=== PATIENT | female | born 1965 | race African-American/Black ===

== ENCOUNTER 2016-07-08 12:55 | Observation (INO) ==
[2016-07-08 13:43] LABS: MANUAL DIFF NEEDED? NO
[2016-07-08 13:46] LABS: BASO% 0.2 % (0.0-0.8); EOS# 0.23 X1000 (0.0-0.7); EOS% 2.8 % (0.0-10.0); HEMATOCRIT 43.4 % (37.0-47.0); HEMOGLOBIN 14.7 g/dL (12.0-16.0); LYMPH# 2.37 X1000 (1.2-3.4); LYMPH% 28.9 % (20.5-51.1); MCH 28.8 PG (27-31); MCHC 33.9 g/dL (33-37); MCV 84.9 FL (81-99); MONO# 0.43 X1000 (0.11-0.59); MONO% 5.2 % (1.7-9.3); NEUT% 62.9 % (42.2-75.2); PLT 271 X1000 (130-400); RBC 5.11 XMIL (4.2-5.4)
[2016-07-08 14:00] LABS: PROTIME 10.5 Seconds (9.2-11.7); PTT 27.3 Seconds (22.0-36.0)
[2016-07-08 14:07] LABS: AGAP 16; ALKALINE PHOSPHATASE 70 U/L (32-104); BUN 9 mg/dL (8-22); CALCIUM 9.7 mg/dL (8.8-10.2); CHLORIDE 100 mmol/L (98-107); CK PROFILE 140 U/L (24-173); COSMO 285; GOT 23 U/L (10-30); GPT 25 U/L (10-36); POTASSIUM 3.9 mmol/L (3.5-5.1); SODIUM 140 mmol/L (136-145); TCO2 24 mmol/L (25-35); TOTAL BILIRUBIN 0.43 mg/dL (0.20-1.00); TOTAL PROTEIN 7.5 g/dL (6.3-8.3)
[2016-07-08] MEDS ORDERED: ASPIRIN PO ONE (14:18)
[2016-07-08] MEDS ORDERED: NITROGLYCERIN TOP ONE (14:19)
--- NOTE | 2016-07-08 14:24 | EKG Report ---
Test Performed on : 07/08/2016 1:15:43 PM Test Reason : cp Blood Pressure : / mmHG Vent. Rate : 089 BPM Atrial Rate : 089 BPM P-R Int : 146 ms QRS Dur : 084 ms QT Int : 410 ms P-R-T Axes : 057 007 044 degrees QTc Int : 498 ms Normal sinus rhythm. Possible Left atrial enlargement Septal infarct , age undetermined Abnormal ECG No previous ECGs available Unconfirmed Result
--- NOTE | 2016-07-08 14:45 | Diag Imaging Result Document ---
PROCEDURE NAME: CHEST-2 VIEWS - 07/08/2016 FRONTAL AND LATERAL CHEST, TWO VIEWS: COMPARISON: 02/25/2016. FINDINGS: The lungs are well expanded. The heart is not enlarged. The vessels are not distended. No pneumonia. No pleural effusions. There is a granuloma in the right base. Prominent degenerative bone spurring in the mid and lower thoracic spine. No free air beneath the diaphragm. IMPRESSION: No acute abnormality.
--- NOTE | 2016-07-08 17:55 | PROVIDER DOCUMENTATION ---
This chart was entered by Charbel Johnson Scribe, acting as scribe for Clifton Raya MD. HPI-Chest Pain - General Chief Complaint: Chest Pain Stated Complaint: generalized pain Time Seen by Provider: 07/08/16 13:55 Source: patient Allergies/Adverse Reactions: Patient Allergies Allergy/AdvReac Type Severity Reaction Status Date / Time No Known Allergies Allergy Verified 07/08/16 14:37 Home Medications: Home Medication List Medication Instructions Recorded Confirmed Last Taken Type Hydrochlorothiazide 25 mg PO DAILY 09/11/13 07/08/16 07/07/16 08:00 History Buspirone [Buspar] 7.5 mg PO BID #14 tablet 07/06/15 07/08/16 07/07/16 08:00 Rx Metformin [Glucophage] 1,000 mg PO DAILY 07/06/15 07/08/16 07/07/16 08:00 History Amlodipine [Norvasc] 5 mg PO DAILY 07/08/16 07/08/16 07/07/16 08:00 History - History of Present Illness-CP Nature of Presenting Problem: PT C/O C/P THAT RADIATES INTO HER ABD,NECK AND JAW X3 DAYS. Location: reports: central Chest Pain Radiation: reports: jaw, neck, epigastric Quality of Pain: reports: aching, burning Severity in ED: mild Onset/Duration: 3 days ago Timing: still present Context/Activities at Onset: reports: none Modifying Factors: improves with: nothing Associated Symptoms: reports: abdominal pain, heartburn. denies: diaphoresis, shortness of breath, vomiting Nitro Today/Relief: no nitro taken today Aspirin Treatment Today: no aspirin today Prior Chest Pain/Cardiac Workup: reports: no prior chest pain, no prior cardiac workup Similar Symptoms Previously?: No Recently Seen Here or By Another Healthcare Provider: No Review of Systems - Adult - REVIEW OF SYSTEMS - ADULT Constitutional: denies: chills, fever, fatique Eyes: denies: discharge, blurred vision, double vision Ears, Nose, Mouth & Throat: denies: ear pain, loose teeth, throat swelling Cardiovascular: reports: chest pain. denies: irregular heart rate, palpitations Respiratory: denies: cough, shortness of breath, wheezing Gastrointestinal: reports: abdominal pain. denies: diarrhea, nausea, vomiting Genitourinary: denies: dysuria, flank pain, hematuria Musculoskeletal: reports: neck pain. denies: back pain, muscle aches Integumentary: denies: hives, itching, rash Neurological: denies: dizziness/vertigo, headache/migraines, syncope Psychiatric: denies: anxiety, emotional problems, panic attacks All Other Systems: Reviewed and Negative Past History - Adult - PAST MEDICAL HISTORY-ADULT Review of Records: reports: Nursing Assessment Review, Medications Reviewed Major Childhood Illnesses: reports: denies history Cardiovascular: reports: HTN Respiratory: reports: denies history Gastrointestinal: reports: denies history Obstetrical/Gynecological: reports: denies history Genitourinary: reports: denies history Musculoskeletal: reports: chronic pain Neurological: reports: denies history Psychiatric: reports: depression Endocrine/Immune: reports: denies history, Diabetes Other Conditions: reports: denies history - PRIOR SURGERIES/PROCEDURES Surgical/Procedure History: reports: reviewed, not pertinent - PRIOR HOSPITALIZATIONS Prior Hospitalizations: reports: for other non-related - IMMUNIZATION STATUS Childhood Immunizations: See Nurse Assessment Flu Vaccine: See Nurse Assessment - FAMILY HISTORY Family History: reviewed, not pertinent - SOCIAL HISTORY Smoking: less than 1 pack/day Provider spent 3-5 mins advising pt. on dangers of tobacco.: Discussed manners to quit use, and f/u contacts for add'l counseling. Substance Use: none/never Alcohol Use Frequency: never Living Situation: alone Physical Exam-General - PHYSICAL EXAM-ADULT Initial Vital Signs Reviewed: Yes - CONSTITUTIONAL General Appearance: appears well, alert, no apparent distress - EYES Eyes: PERRL/EOMI, pink conjunctivae, anisocoria - HEAD, EARS, NOSE, MOUTH & THROAT HENMT: normocephalic/atraumatic, moist mucous membranes, normal ENT inspection, TMs normal, pharynx normal - NECK Neck: non-tender, full range of motion, supple, normal inspection - RESPIRATORY Respiratory: chest non-tender, lungs clear, normal breath sounds, no pleuratic chest pain, no respiratory distress, no accessory muscle use - CARDIOVASCULAR Cardiovascular: normal peripheral pulses, regular rate, rhythm, no edema, no gallop, no JVD, no murmur - GASTROINTESTINAL (ABDOMEN) Abdominal Exam: normal bowel sounds, non tender, soft, no organomegaly, no pulsatile mass - LYMPHATIC Lymphatic: no adenopathy - MUSCULOSKELETAL Back Exam: normal inspection, no CVA tenderness, no vertebral tenderness Extremity: normal range of motion, non-tender, normal gait, normal inspection, no pedal edema, no calf tenderness, normal capillary refill, pelvis stable - SKIN Integumentary: normal color, normal turgor, warm/dry - PSYCHIATRIC Psych/Mental Status: normal mood/affect, normal thought content, normal thought process, oriented x 3 Progress - PLAN OF CARE/RESULTS Progress/Plan/Lab Results: Vital Signs - 8 hr 07/08/16 13:02 Temperature 98.1 F Pulse Rate 99 H Respiratory Rate 18 Blood Pressure 153/89 O2 Sat by Pulse Oximetry 97 Laboratory Results - last 24 hr 07/08/16 07/08/16 07/08/16 13:30 13:30 13:30 WBC 8.20 RBC 5.11 Hgb 14.7 Hct 43.4 MCV 84.9 MCH 28.8 MCHC 33.9 RDW Std Deviation 15.0 H Plt Count 271 MPV 11.0 H Immature Gran % (Auto) 0.0 Neut % (Auto) 62.9 Lymph % (Auto) 28.9 [place] % (Auto) 5.2 Eos % (Auto) 2.8 Baso % (Auto) 0.2 Immature Gran # (Auto) 0.00 Neut # (Auto) 5.15 Lymph # (Auto) 2.37 [place] # (Auto) 0.43 Eos # (Auto) 0.23 Baso # (Auto) 0.02 PT INR PTT (Actin FS) D-Dimer 0.59 H Sodium 140 Potassium 3.9 Chloride 100 Carbon Dioxide 24 L Anion Gap 16 BUN 9 Creatinine 0.9 Estimated GFR/1.73 m2 > 60 BUN/Creatinine Ratio 10 Glucose 227 H Calculated Osmolality 285 Calcium 9.7 Total Bilirubin 0.43 AST 23 ALT 25 Alkaline Phosphatase 70 Creatine Kinase 140 Troponin T C-React Prot High Sens Total Protein 7.5 Albumin 4.0 Globulin 3.5 Albumin/Globulin Ratio 1.1 07/08/16 07/08/16 07/08/16 13:30 13:30 13:30 WBC RBC Hgb Hct MCV MCH MCHC RDW Std Deviation Plt Count MPV Immature Gran % (Auto) Neut % (Auto) Lymph % (Auto) [place] % (Auto) Eos % (Auto) Baso % (Auto) Immature Gran # (Auto) Neut # (Auto) Lymph # (Auto) [place] # (Auto) Eos # (Auto) Baso # (Auto) PT 10.5 INR 1.00 PTT (Actin FS) 27.3 D-Dimer Sodium Potassium Chloride Carbon Dioxide Anion Gap BUN Creatinine Estimated GFR/1.73 m2 BUN/Creatinine Ratio Glucose Calculated Osmolality Calcium Total Bilirubin AST ALT Alkaline Phosphatase Creatine Kinase Troponin T < 0.010 C-React Prot High Sens 1.160 Total Protein Albumin Globulin Albumin/Globulin Ratio Orders Category Date Time Status Diabetic Diet Diet 07/08/16 17:24 Active CHEST-2 VIEWS [RAD] Stat Exams 07/08/16 13:35 Completed CTA [ANGIOGRAM/PULMONARY ARTERIES] [CT] Stat Exams 07/08/16 17:22 Ordered CBC WITH ELECTRONIC DIFF [HEME] Stat Lab 07/08/16 13:30 Completed CK PROFILE [SP CHEM] Stat Lab 07/08/16 13:30 Completed COMPREHENSIVE METABOLIC PANEL [CHEM] Stat Lab 07/08/16 13:30 Completed CRP HIGH SENSITIVITY Stat Lab 07/08/16 13:30 Completed D-DIMER [CHEM] Stat Lab 07/08/16 13:30 Completed TEST-SERUM [PREG] Stat Lab 07/08/16 17:41 Ordered PROTIME WITH INR [COAG] Stat Lab 07/08/16 13:30 Completed PTT [COAG] Stat Lab 07/08/16 13:30 Completed TROPONIN T Stat Lab 07/08/16 13:30 Completed Aspirin Med 07/08/16 14:18 Discontinued 324 mg PO NOW ONE Nitroglycerin Med 07/08/16 14:19 Discontinued 1 inch TOP NOW ONE EKG [EKG] Stat Ther 07/08/16 13:08 Draft Venous U/S Left Leg Routine Ther 07/08/16 17:36 Ordered Transfer/Admit Order [TRANSFER] Routine Transfer 07/08/16 16:50 Ordered Result Diagrams: 07/08/16 13:30 07/08/16 13:30 Departure - Departure Time of Disposition Decision: 17:00 DIAGNOSIS: Chest pain Qualifiers: Chest pain type: chest pain due to myocardial ischemia Ischemic chest pain type : unstable angina pectoris Qualified Code(s): I20.0 - Unstable angina Disposition: ADMITTED INPATIENT 09 Certified Medical Emergency: Emergent Condition: Good Referrals and Follow-Ups: None,PCP [Primary Care Provider] - - Critical Care Note This patient required my direct & personal management of CC.: No This chart was documented by the indicated scribe, (Charbel Johnson Scribe) and accurately reflects the services I performed and decisions made by me, Clifton Raya MD, as attested by the provider's signature.
[2016-07-08] MEDS ORDERED: DUONEB (A & A) INH PRN (18:38)
[2016-07-08] MEDS ORDERED: TYLENOL PO PRN (18:38)
[2016-07-08] MEDS ORDERED: ZOFRAN IV PRN (18:38)
--- NOTE | 2016-07-08 18:44 | HISTORY AND PHYSICAL ---
CHIEF COMPLAINT: Chest pain. HISTORY OF PRESENT ILLNESS: Mrs. Perez is a 51-year-old female with a history of diabetes mellitus, hypertension, asthma, gastroesophageal reflux disease who presents with 1 month of chest pain which has been increasingly worse over the past week. Mrs. Perez reports that over the last month she is having random episodes of midsternal to left-sided chest pain that radiates up her neck into her jaw. This is not associated with exertion. This happens multiple times a day which she reports a dull pain that goes up into her neck lasting for anywhere from 5-10 minutes. She does have some shortness of breath with the pain but she also has chronic shortness of breath. She denies any nausea or vomiting with the pain and she denies any diaphoresis with the pain. She states that she has pedal edema occasionally and PND but no orthopnea, she also reports left leg pain and swelling greater than the right. She also reports abdominal pain, which is chronic and has been going on for some time. This is associated with constipation. She had episodes today and she came to the ER for evaluation. In the ER, she had labs and diagnostics done. Everything was largely unremarkable with the exception of a mildly elevated D- dimer and a glucose of 227. EKG shows normal sinus rhythm without acute ST or T abnormalities. She is now going to be admitted for observation status for chest pain. PAST MEDICAL HISTORY: 1. Hypertension. 2. Peptic ulcer disease. 3. Gastroesophageal reflux disease. 4. Diabetes mellitus. 5. Hyperlipidemia. 6. Asthma. SURGICAL HISTORY: Bilateral tubal ligation, and breast biopsy on the left. SOCIAL HISTORY: Patient smokes around a quarter pack a day of cigarettes. She reports occasional alcohol on the weekends. She denies drug use. 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 She is and has 5 children. FAMILY HISTORY: Both parents at 50 years old with a myocardial infarction. REVIEW OF SYSTEMS: Fourteen-point review of systems obtained and found to be negative with the exception of the HPI. ALLERGIES: No known drug allergies. HOME MEDICATIONS: Currently being compiled. PHYSICAL EXAMINATION: VITAL SIGNS: Blood pressure 153/89, heart rate 99, respiratory rate 18, O2 saturations 97% on room air. Temperature is 98.1 degrees. GENERAL: This is an obese female, lying in the hospital bed. No acute distress. NEUROLOGIC: She is awake, alert, oriented. She follows commands without focal deficits. HEENT: Head atraumatic and normocephalic. Her pupils are equal, round, reactive to light. Oral mucosa is moist. Trachea is midline. No JVD or carotid bruits. CHEST: Clear to auscultation bilaterally. She has significant chest wall tenderness to palpation in the midsternal area. LUNGS: Clear to auscultation bilaterally. CV: Regular rate and rhythm. S1, S2 is noted. No murmurs. GI: Soft, nondistended, some slight left upper quadrant tenderness to palpation. Bowel sounds are active. EXTREMITIES: No edema, clubbing or cyanosis. Pulses are palpable bilaterally. DIAGNOSTIC DATA: Chest x-ray is negative for acute process. EKG shows sinus rhythm without acute ST-T abnormalities. WBC 8.2, hemoglobin 14.7, hematocrit 43.4, platelet count 271,000. PT 10.5, INR 1, D-dimer 0.59. Sodium 140, potassium 3.9, chloride 100, CO2 24, anion gap 16. BUN 9, creatinine 0.9, glucose 227. LFTs within normal limits. Troponin is negative. CRP high sensitivity is 1.16. Albumin 4. ASSESSMENT/PLAN: 1. Chest pain: Atypical in nature. We are going to check an echocardiogram, rule out myocardial infarction with cardiac enzymes and risk stratify with a stress test in the morning. We will keep her NPO, without caffeine after midnight. We will continue to trend enzymes and add daily aspirin. If any of her enzymes become positive or her stress test is positive we will consult with Cardiology. We are also going to check a CTA of the chest given her elevated D- dimer. 2. Elevated D-dimer: Computed tomography angiography of the chest has been ordered. We will also order a left lower extremity venous ultrasound as she is complaining of left lower extremity pain and swelling about the left knee. 3. Diabetes mellitus: Blood sugar 227, will check hemoglobin A1c. Add pattern sugars and sliding scale insulin. 4. Hypertension: We will continue home medications once they have been compiled. We will add IV medications as needed. 5. Asthma: We will check a CTA of the chest and add p.r.n. nebs. She is not wheezing at this time. 6. Acid reflux/peptic ulcer disease. We will add PPI. 7. DVT prophylaxis with Lovenox. Further recommendations to follow. Dictated by FER Booth for Jabier Basilio MD cc: FER Booth MD [facility]
[2016-07-08 19:08] LABS: HEMOGLOBIN A1C 12.4 % (4.8-6.0)
[2016-07-08] MEDS: BUSPAR PO SCH (21:09)
[2016-07-08] MEDS: NICODERM PATCH TD SCH (21:10)
[2016-07-08] MEDS: MORPHINE IV PRN (21:10)
[2016-07-08] MEDS: HUMALOG SUBQ SCH (21:15)
--- NOTE | 2016-07-08 22:11 | Diag Imaging Result Document ---
PROCEDURE NAME: ANGIOGRAM/PULMONARY ARTERIES - 07/08/2016 STUDY: CT chest with intravenous contrast. PROTOCOL: Dose reduction protocol. Suboptimal pulmonary opacification despite two separate attempts. No large central pulmonary emboli. No thoracic aortic aneurysm or dissection. No pleural effusions. The heart is borderline mildly prominent. No enlarged mediastinal or hilar lymph nodes. There is a calcified granuloma in the right lower lobe. There is a small infiltrate in the medial portion of the right lower lobe inferiorly. A 3 mm nonspecific nodule laterally in the right lung on image 65. An 8 mm noncalcified nodule in the mid right lung on image 79. Just inferior to this is a 3 mm nodule as well as a calcified granuloma. Tiny granuloma in the left lower lobe. A 5 mm nodule laterally in the right lung on image 102. No bronchiectasis. Limited images through the upper abdomen reveal hepatomegaly with fatty infiltration. IMPRESSION: 1. Suboptimal pulmonary opacification. No large central pulmonary emboli identified. 2. Fibrosis versus small infiltrate medially in the right lower lobe. 3. There is evidence of a prior granulomatous infection with multiple scattered calcified granuloma. 4. There are also several noncalcified nodules scattered in the lungs. 5. Hepatomegaly with fatty infiltration. A preliminary report was given at 8:02 p.m.
[2016-07-08] MEDS: DUONEB (A & A) INH SCH ×2 (23:10)
[2016-07-09] MEDS: DUONEB (A & A) INH SCH ×6 (04:12→22:45)
[2016-07-09] MEDS: HUMALOG SUBQ SCH ×4 (06:17→21:15)
[2016-07-09] MEDS: MORPHINE IV PRN ×2 (06:21→21:23)
[2016-07-09 08:47] LABS: HEMATOCRIT 41.8 % (37.0-47.0); HEMOGLOBIN 13.6 g/dL (12.0-16.0); MCH 28.1 PG (27-31); MCHC 32.5 g/dL (33-37); MCV 86.4 FL (81-99); RBC 4.84 XMIL (4.2-5.4)
[2016-07-09 09:08] LABS: AGAP 14; BUN 14 mg/dL (8-22); CALCIUM 8.5 mg/dL (8.8-10.2); CHLORIDE 101 mmol/L (98-107); COSMO 282; POTASSIUM 3.6 mmol/L (3.5-5.1); SODIUM 139 mmol/L (136-145); TCO2 24 mmol/L (25-35)
--- NOTE | 2016-07-09 13:16 | ECHO REPORT ---
ORDER DATE: 07/08/2016 MEASUREMENTS: Left ventricular end-diastolic diameter 4.8, end-systolic diameter 3.5, septal thickness 1.2, posterior wall thickness 1.2, left atrium 4.5, aortic root 2.8. SUMMARY: 1. Adequate quality study. 2. Aortic, mitral, tricuspid, and pulmonic valves are without structural abnormality, with trace tricuspid regurgitation and mild pulmonic regurgitation. Aortic root is normal size. 3. Normal left ventricular chamber size with mild concentric left ventricular hypertrophy is demonstrated. Estimated left ventricular ejection fraction is approximately 55%. No regional wall motion abnormalities are evident. Doppler suggests grade 1 left ventricular diastolic dysfunction. 4. Left atrium, right atrium, and right ventricle are normal in size. No regional wall motion abnormalities are evident. Doppler suggests grade 1 left ventricular diastolic dysfunction. Left atrium is mildly enlarged. Right atrium and right ventricle are normal in size with normal right ventricular systolic function. 5. No pericardial effusion. 6. Appearance of inferior vena cava suggests normal central venous pressure. CONCLUSIONS: 1. No significant valvular abnormality. 2. Mild concentric left ventricular hypertrophy with an estimated left ventricular ejection fraction of 55%. 3. Grade 1 left ventricular diastolic dysfunction. 4. Mild left atrial enlargement. cc: MD Tr Lorenzana CRNP
--- NOTE | 2016-07-09 13:36 | PROGRESS NOTE ---
DATE: 07/09/2016 Today Ms. Perez referred to be doing a lot better. She continues to have this epigastric chest pain which according to her, radiates to her neck. OBJECTIVE: Vital signs: Blood pressure is 123/83, pulse of 71, respirations 18 , temperature is 98.1 degrees. General: Ms. Perez is a 51-year-old female. She is in bed, not seemingly distressed. HEENT: Mucosa is pink and moist. Anicteric. Acyanotic. Neck: Supple. Chest: Good air entry bilateral. No crepitations. No rhonchi. Cardiovascular : Regular rate and rhythm. Abdomen: Soft, is exclusively tender in the epigastrium and the right upper quadrant. Bowel sounds are present. There is no hepatosplenomegaly. Extremities: No pedal edema. 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 There is no focal neurological deficit. LABORATORY DATA: The CBC is reviewed, is completely negative. Chemistry is reviewed and is completely negative. Patient's glucose is 178, and A1c is 12.4 consistent with uncontrolled diabetes mellitus. CURRENT MEDICATIONS INCLUDE: 1. Tylenol p.r.n. 2. Albuterol. 3. Norvasc 5 mg daily. 4. Aspirin 325 p.o. daily. 5. BuSpar. 6. Lovenox. 7. Morphine. ASSESSMENT: 1. Atypical chest pain. The patient does have significant risk factor and a C- reactive sensitive protein is high. I think it is reasonable to go ahead and do a stress test. 2. Epigastric pain and right upper quadrant pain. I think patient genuinely does have GI related disease maybe an underlying ulcer versus GERD or esophagitis. We will however rule out the cardiac aspect 1st and then hopefully get our GI colleagues to see her and possibly scope her while she is here in hospital. For now will continue with the PPI and add Carafate. 3. Costochondritis. We will treat this symptomatically. 4. Active tobacco use. Patient has been counseled. 5. Diabetes mellitus with presenting A1c 12.4 consistent with severely uncontrolled. While patient is in the hospital we will control this with insulin. She was only on metformin at home. I think in the short term she will be needing insulin to get a better glycemic control. 6. Hypertension. Noted. 7. Dyslipidemia. We will start the patient on atorvastatin 40 mg daily. So in general, I think Ms. Perez is relatively stable. She had an echo and she will be pending a myocardial perfusion scan test. Will also do an ultrasound of the right upper quadrant to make sure there is not any gallbladder related disease and hopefully follow up with the results. cc: Jabier Basilio MD MTDD
[2016-07-09] MEDS ORDERED: LEXISCAN ONE (14:08)
[2016-07-09] MEDS: BUSPAR PO SCH ×2 (16:07→21:15)
[2016-07-09] MEDS: ASPIRIN PO SCH ×2 (16:41→17:08)
--- NOTE | 2016-07-09 17:00 | Diag Imaging Result Document ---
PROCEDURE NAME: US ABDOMEN-COMPLETE - 07/09/2016 ABDOMINAL ULTRASOUND: FINDINGS: Normal pancreatic head. The majority of the pancreas is obscured by overlying bowel gas. Normal inferior vena cava and aorta. There is fatty infiltration of the liver. No focal hepatic abnormality. Normal gallbladder. No stones. The gallbladder wall is not thickened. The common bile duct is not distended. Normal right kidney. No hydronephrosis. The common bile duct measures 3 mm. No ascites. Normal spleen. Normal left kidney. No hydronephrosis. IMPRESSION: Fatty infiltration of the liver, otherwise normal abdominal ultrasound.
[2016-07-09] MEDS: LOVENOX SUBQ SCH (17:06)
[2016-07-09] MEDS: LIPITOR PO SCH (17:07)
[2016-07-09] MEDS: CARAFATE PO SCH ×2 (17:07→21:15)
[2016-07-09] MEDS: NORVASC PO SCH (17:08)
[2016-07-09] MEDS: NICODERM PATCH TD SCH (17:09)
[2016-07-10] MEDS: DUONEB (A & A) INH SCH ×3 (03:56→11:20)
[2016-07-10] MEDS: HUMALOG SUBQ SCH ×2 (06:23→10:39)
[2016-07-10] MEDS ORDERED: PRILOSEC PO SCH (07:00)
[2016-07-10 07:12] LABS: HEMATOCRIT 40.1 % (37.0-47.0); HEMOGLOBIN 12.9 g/dL (12.0-16.0); MCH 28.3 PG (27-31); MCHC 32.2 g/dL (33-37); MCV 87.9 FL (81-99); MPV 11.2 FL (7.4-10.4); RBC 4.56 XMIL (4.2-5.4)
[2016-07-10 07:37] LABS: AGAP 11; BUN 13 mg/dL (8-22); CHLORIDE 103 mmol/L (98-107); COSMO 288; POTASSIUM 4.2 mmol/L (3.5-5.1); SODIUM 142 mmol/L (136-145); TCO2 28 mmol/L (25-35)
[2016-07-10] MEDS: NICODERM PATCH TD SCH (08:26)
[2016-07-10] MEDS: CARAFATE PO SCH ×2 (08:27→13:30)
[2016-07-10] MEDS: BUSPAR PO SCH (08:27)
[2016-07-10] MEDS: LIPITOR PO SCH (08:28)
[2016-07-10] MEDS: ASPIRIN PO SCH (08:28)
[2016-07-10] MEDS: LOVENOX SUBQ SCH (08:29)
[2016-07-10] MEDS: NORVASC PO SCH (08:29)
[2016-07-10] MEDS: MORPHINE IV PRN (08:53)
--- NOTE | 2016-07-10 12:37 | Diag Imaging Result Document ---
PROCEDURE NAME: MYOCARDIAL PERF SCAN, STR/REST - 07/09/2016 INDICATION: Chest pain. PROCEDURES PERFORMED: 1. Lexiscan stress. 2. One day stress rest myocardial perfusion imaging. PROCEDURE IN DETAIL: Ms. Perez was brought to the nuclear laboratory and had a resting study with injection of 14.5 mCi of technetium-99m sestamibi to usual imaging protocol utilized. Subsequently she had a Lexiscan stress. At peak stress, was injected with 44.8 mCi of technetium- 99m sestamibi with usual imaging protocol utilized. FINDINGS: LEXISCAN STRESS RESULTS: 1. Baseline EKG shows sinus rhythm. 2. No clear evidence of ischemic related EKG changes or significant arrhythmias occurred during the course of the study. PERFUSION IMAGING RESULTS: 1. No evidence of abnormal extracardiac uptake. 2. TID ratio is normal at 1.04. 3. Perfusion imaging demonstrates normal homogenous uptake of radiotracer throughout the myocardial segments. There is no evidence of stress-related defects. 4. Normal ejection fraction of 61%. There is an end-diastolic volume of 136. End-systolic volume of 53. Normal wall motion. cc: MD Jabier Agudelo MD
[2016-07-10 14:57] VITALS: BP 122/52
--- NOTE | 2016-07-10 19:50 | DISCHARGE SUMMARY ---
ADMISSION DATE: 07/08/2016 DISCHARGE DATE: 07/10/2016 CONSULTATIONS DURING THIS ADMISSION: None. INVASIVE PROCEDURES DONE: None. IMAGING STUDIES OF SIGNIFICANCE: 1. CTA of the lungs was done on presentation which was completely negative of PE. There is some hepatomegaly with fatty infiltration. 2. Ultrasound of the abdomen was done. There was fatty infiltration of the liver. Otherwise gallbladder was fine. 3. Myocardial perfusion scan of the heart was completely negative. DISPOSITION: Home. ADMISSION DIAGNOSES: 1. Chest pain. 2. Elevated D-dimer. 3. Diabetes mellitus. 4. Hypertension. DISCHARGE DIAGNOSES: 1. Atypical chest pain with normal stress test. 2. Epigastric pain suspicious for esophagitis/peptic ulcer disease. 3. Costochondritis. 4. Active tobacco use. 5. Diabetes mellitus with presenting A1c of 12.4. 6. Hypertension. 7. Dyslipidemia. DISCHARGE MEDICATIONS: 1. Hydrochlorothiazide 25 mg daily. 2. Metformin 1000 mg p.o. daily. 3. BuSpar. 4. Amlodipine 5 mg daily. 5. Atorvastatin 40 mg daily. 6. Omeprazole 40 mg daily. 7. Carafate 1 g p.o. q.4. 8. Insulin 70/30. Patient refers to be taking 30 units at home. We do not have any documentation so we do not want to alter this. We have advised her to follow up with her primary care doctor to make changes since her A1c is ridiculously high. FOLLOWUP: 1. Patient's PCP, Dr. Whitmore. 2. GI doctor. Referred to see Dr. Landis. PRESENTING COMPLAINT: Chest pain. HISTORY OF PRESENTING COMPLAINT: Ms. Perez is a 51-year-old, female with multiple comorbidities who presented to the emergency department because of chest pain radiating to the left arm and the jaw. Because patient has significant risk factors and also a family history of both parents dying at the age of 50 with heart attacks, it was deemed necessary to put her in for risk stratification. HOSPITAL COURSE: During the hospital course patient did continue to have intermittent chest pain, however, troponins and EKGs were all normal. A stress test was done which came back completely normal. The patient did improve somewhat with PPI and Carafate. I think her pain is all related to GI pathology. The patient does have a history of peptic ulcer disease and GERD, and I do not think she has been very compliant with her medications and is having a flare from those diseases. The patient is clinically stable from a medical standpoint. We thought she was okay to be discharged. She has been given recommendations to follow up with Dr. Landis for possible EGD to follow up on her epigastric pain. The patient has also been advised to lose some weight and stay away from alcohol because she has fatty liver disease. We spent an extensive amount of time, over 15 minutes, also talking about smoking cessation. Today she refers to be doing a lot better. Vitals have been reviewed. Blood pressure is 122/52, pulse of 80, respirations 18, temperature is 98.0 degrees. Physical examination is unremarkable except for mild epigastric discomfort. Patient is going to be discharged in very stable condition. She will follow up with her PCP, Dr. Whitmore, and also with Dr. Landis. All discharge instructions have been discussed and as I said, we stressed very importantly the need for smoking and alcohol cessation. TIME SPENT FOR DISCHARGE: 37 minutes. cc: Jabier Basilio MD
--- NOTE | 2016-07-14 07:51 | Extremity Venous Study ---
PROCEDURE NAME: Venous U/S Left Leg - 07/08/2016 REFERRING PHYSICIAN: Dr. Raya. READING PHYSICIAN: Aleksander Tamayo MD. AGENCY OWNER: [employer]. INDICATION: Left leg pain and swelling. FINDINGS: The deep and superficial veins of the left lower extremity were imaged throughout their course. All are compressible with forward flow. No thrombus is appreciated. Reflux is noted in the left greater saphenous vein for 5.3 seconds, as well as in the mid superficial femoral vein for 3.6 seconds. INTERPRETATION: No evidence of deep or superficial venous thrombosis in the left lower extremity. Venous reflux is noted over 0.5 seconds in the greater saphenous vein and superficial femoral vein. cc: MD Tr Min CRNP
== END 2016-07-10 14:55 | disposition home or self-care (01) ==
LOC: ED 12:55 → 3N 18:16 → INTOOBSV 18:16 → 3N 07-09 03:32
PROVIDERS: ATTEND Internal Medicine

== ENCOUNTER 2018-03-31 20:40 | Inpatient (IN) ==
[2018-03-31] MEDS ORDERED: SOLU-MEDROL IV ONE (23:37)
[2018-03-31] MEDS ORDERED: DUONEB (A & A) ONE (23:51)
[2018-04-01] MEDS ORDERED: DUONEB (A & A) INH ONE ×4 (00:42→11:45)
[2018-04-01 01:12] LABS: BASO# 0.02 X1000 (0.0-0.2); BASO% 0.2 % (0.0-0.8); EOS# 0.13 X1000 (0.0-0.7); EOS% 1.4 % (0.0-10.0); HEMATOCRIT 34.1 % (37.0-47.0); HEMOGLOBIN 10.7 g/dL (12.0-16.0); IMM GRAN# 0.01 X1000 (0.0-0.04); IMM GRAN% 0.1 % (0.0-0.5); LYMPH# 3.05 X1000 (1.2-3.4); LYMPH% 33.7 % (20.5-51.1); MCH 26.7 PG (27-31); MCHC 31.4 g/dL (33-37); MONO# 0.53 X1000 (0.11-0.59); MONO% 5.9 % (1.7-9.3); MPV 11.2 FL (7.4-10.4); NEUT# 5.31 X1000 (1.4-6.5); NEUT% 58.7 % (42.2-75.2); PLT 234 X1000 (130-400); RBC 4.01 XMIL (4.2-5.4); RDW 16.3 % (11.5-14.5); WBC 9.05 X1000 (4.8-10.8)
[2018-04-01 02:09] LABS: AGAP 10; BUN 9 mg/dL (8-22); CALCIUM 8.9 mg/dL (8.8-10.2); CHLORIDE 103 mmol/L (98-107); COSMO 281; CREATININE 0.6 mg/dL (0.5-0.9); ESTIMATED GFR > 60; GLUCOSE 181 mg/dL (70-104); POTASSIUM 3.6 mmol/L (3.5-5.1); SODIUM 139 mmol/L (136-145); TCO2 25 mmol/L (25-35)
--- NOTE | 2018-04-01 04:48 | PROVIDER DOCUMENTATION ---
This chart was entered by Ifrah Garcia Scribe, acting as scribe for Clifton Raya MD. HPI-Respiratory General - General Chief Complaint: Return/Recheck Stated Complaint: CHEST PAIN,SOB,ASTHMA Time Seen by Provider: 03/31/18 23:34 Source: patient Allergies/Adverse Reactions: Patient Allergies Allergy/AdvReac Type Severity Reaction Status Date / Time No Known Allergies Allergy Verified 03/31/18 22:20 Home Medications: Home Medication List Medication Instructions Recorded Confirmed Last Taken Type Hydrochlorothiazide 25 mg PO DAILY #90 tab 07/25/17 11/17/17 11/16/17 Rx Albuterol 2.5MG/Ipratrop 0.5MG 3 ml INH Q6H PRN PRN #90 neb 11/04/17 11/17/17 Rx [Duoneb] Albuterol Sulfate [Albuterol 8.5 gm IH Q4-6H PRN PRN #2 11/04/17 11/17/17 Rx Sulfate Hfa] hfa.[email or web address].[email or web address] Amlodipine [Norvasc] 10 mg PO DAILY 11/04/17 11/17/17 11/16/17 History Buspirone HCl [Buspar] 5 mg PO DAILY 11/04/17 11/17/17 11/16/17 History Ferrous Sulfate 325 mg PO DAILY #100 tablet 11/04/17 11/17/17 11/16/17 Rx Fluticasone/Salmeterol [Advair 1 each IH BID #1 disk.w.dev 11/04/17 11/17/1712/24 Rx 500-50 Diskus] Metformin HCl 1,000 mg PO BID #180 tablet 11/04/17 11/17/17 11/17/17 Rx Cyclobenzaprine [Flexeril] 10 mg PO TID PRN 3 Days tablet 11/17/17 Unknown Rx Methocarbamol [Robaxin-750] 750 mg PO BID PRN #60 tablet 02/14/18 Unknown Rx Naproxen 500 mg PO BID PRN PRN #60 tablet 02/14/18 Unknown Rx Clonidine [Catapres] 0.1 mg PO BID #60 tab 02/17/18 Unknown Rx Glimepiride [Amaryl] 4 mg PO DAILY #30 tab 02/17/18 Unknown Rx Hydrochlorothiazide 25 mg PO DAILY #30 tab 02/17/18 Unknown Rx Metformin [Glucophage] 500 mg PO BID CC #60 tab 02/17/18 Unknown Rx Albuterol Sulfate Inhaler 2 puff INH Q6H PRN PRN #1 inhaler 03/30/18 Unknown Rx [Ventolin Hfa] Amoxicillin/Pot Clavulanate 875 mg PO Q12HR #10 tab 03/30/18 Unknown Rx [Augmentin] Clonidine [Catapres] 0.1 mg PO DAILY #30 tab 03/30/18 Unknown Rx Hydrochlorothiazide 25 mg PO DAILY #30 tab 03/30/18 Unknown Rx Prednisone 20 mg PO DAILY #5 tab 03/30/18 Unknown Rx - History of Present Illness-Resp Nature of Presenting Problem: 53 yof presents to ED cc of SOB, coughing up blood, runny nose, laringytis, chills, wheezing that has been present for 1-2 weeks. PT was seen at yesterday and given antibiotic and breathing treatment as home meds. PT states stopping smoking 1 week ago. PT has HX of COPD and HTN. Review of Systems - Adult - REVIEW OF SYSTEMS - ADULT Constitutional: reports: chills. denies: fever Eyes: reports: no symptoms reported Ears, Nose, Mouth & Throat: reports: no symptoms reported Cardiovascular: reports: no symptoms reported Respiratory: reports: see HPI, cough, excessive sputum production, hemoptysis, shortness of breath, wheezing Gastrointestinal: reports: no symptoms reported Genitourinary: reports: no symptoms reported Musculoskeletal: reports: no symptoms reported Integumentary: reports: no symptoms reported Neurological: reports: no symptoms reported Psychiatric: reports: no symptoms reported Endocrine: reports: no symptoms reported Hematologic/Lymphatic: reports: no symptoms reported Allergic/Immunologic: reports: no symptoms reported All Other Systems: Reviewed and Negative Past History - Adult - PAST MEDICAL HISTORY-ADULT Review of Records: reports: Nursing Assessment Review, Medications Reviewed Major Childhood Illnesses: reports: denies history Cardiovascular: reports: HTN, hyperlipidemia Respiratory: reports: asthma, tuberculosis (at age 12-treated) Gastrointestinal: reports: GERD, ulcer, other (gallstones) Obstetrical/Gynecological: reports: denies history Genitourinary: reports: denies history Musculoskeletal: reports: chronic pain (DDD), fibromyalgia Neurological: reports: other (foot tingling from diabetes prior to having this pain today) Psychiatric: reports: anxiety, depression Endocrine/Immune: reports: Diabetes Other Conditions: reports: denies history - PRIOR SURGERIES/PROCEDURES Surgical/Procedure History: reports: reviewed, not pertinent, BTL - PRIOR HOSPITALIZATIONS Prior Hospitalizations: reports: for other non-related - IMMUNIZATION STATUS Childhood Immunizations: See Nurse Assessment Flu Vaccine: See Nurse Assessment - FAMILY HISTORY Family History: reviewed, not pertinent - SOCIAL HISTORY Smoking: cigarettes, less than 1 pack/day Physical Exam-General - PHYSICAL EXAM-ADULT Initial Vital Signs Reviewed: Yes - CONSTITUTIONAL General Appearance: alert, moderate distress - EYES Eyes: PERRL/EOMI, pink conjunctivae - HEAD, EARS, NOSE, MOUTH & THROAT HENMT: moist mucous membranes, pharyngeal erythema - NECK Neck: non-tender, full range of motion, supple - RESPIRATORY Respiratory: respiratory distress, crackles, wheezing, retractions. negative: lungs clear - CARDIOVASCULAR Cardiovascular: no edema, tachycardia - GASTROINTESTINAL (ABDOMEN) Abdominal Exam: normal bowel sounds, non tender, soft. 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 as tested, grossly normal, no motor/sensory deficits - PSYCHIATRIC Psych/Mental Status: normal mood/affect, normal thought content, normal thought process, oriented x 3 Progress - PLAN OF CARE/RESULTS Progress/Plan/Lab Results: Vital Signs - 8 hr 03/31/18 20:57 03/31/18 23:55 04/01/18 04:39 Temperature 99 F Pulse Rate 80 80 80 Respiratory Rate 18 20 20 Blood Pressure 178/99 O2 Sat by Pulse Oximetry 98 98 Laboratory Results - last 24 hr 04/01/18 04/01/18 00:45 00:45 WBC 9.05 RBC 4.01 L Hgb 10.7 L Hct 34.1 L MCV 85.0 MCH 26.7 L MCHC 31.4 L RDW Std Deviation 16.3 H Plt Count 234 MPV 11.2 H Immature Gran % (Auto) 0.1 Neut % (Auto) 58.7 Lymph % (Auto) 33.7 [place] % (Auto) 5.9 Eos % (Auto) 1.4 Baso % (Auto) 0.2 Immature Gran # (Auto) 0.01 Neut # (Auto) 5.31 Lymph # (Auto) 3.05 [place] # (Auto) 0.53 Eos # (Auto) 0.13 Baso # (Auto) 0.02 Sodium 139 Potassium 3.6 Chloride 103 Carbon Dioxide 25 Anion Gap 10 BUN 9 Creatinine 0.6 Estimated GFR/1.73 m2 > 60 BUN/Creatinine Ratio 15 Glucose 181 H Calculated Osmolality 281 Calcium 8.9 Orders Category Date Time Status Saline Loc NOW Care 04/01/18 00:[address] THORAX W/CONTRAST [CT] Stat Exams 03/31/18 23:38 Taken BMP [BASIC METABOLIC PANEL] [CHEM] Stat Lab 04/01/18 00:45 Completed CBC WITH ELECTRONIC DIFF [HEME] Stat Lab 04/01/18 00:45 Completed Albuterol 2.5MG/Ipratrop 0.5MG [Duoneb (A & A)] Med 03/31/18 23:51 Discontinued 3 ml .ROUTE .STK-MED ONE Albuterol 2.5MG/Ipratrop 0.5MG [Duoneb (A & A)] Med 04/01/18 04:18 Discontinued 3 ml INH NOW ONE Albuterol 2.5MG/Ipratrop 0.5MG [Duoneb (A & A)] Med 04/01/18 04:21 Discontinued 3 ml INH NOW ONE Albuterol 2.5MG/Ipratrop 0.5MG [Duoneb (A & A)] Med 04/01/18 00:42 Discontinued 6 ml INH NOW ONE Albuterol 2.5MG/Ipratrop 0.5MG [Duoneb (A & A)] Med 04/01/18 11:45 Discontinued 6 ml INH NOW ONE Methylprednisolone Sod Succ [Solu-Medrol] Med 03/31/18 23:37 Discontinued 40 mg IV NOW ONE Aerosol Treatments Routine Oth 03/31/18 23:36 Active Aerosol Treatments Routine Ot 04/01/18 00:43 Active Aerosol Treatments Routine Ot 04/01/18 04:18 Active Aerosol Treatments Routine Ot 04/01/18 04:22 Active Aerosol Treatments Stat Ot 03/31/18 23:36 Active Aerosol Treatments Stat Ot 04/01/18 00:43 Active Aerosol Treatments Stat Oth 04/01/18 04:18 Active Aerosol Treatments Stat Oth 04/01/18 04:22 Active Result Diagrams: 04/01/18 00:45 04/01/18 00:45 - CT/MRI 1 CT Study: Thorax (two non noncalcified pulmonary nodules in right lung) Departure - Departure Date of Disposition Decision: 04/01/18 Time of Disposition Decision: 04:47 DIAGNOSIS: Hemoptysis, Pulmonary nodules/lesions, multiple Disposition: ADMITTED INPATIENT 09 Certified Medical Emergency: Emergent Condition: Stable Referrals and Follow-Ups: None,PCP [Primary Care Provider] - - Critical Care Note This patient required my direct & personal management of CC.: No Attestation - Physician/ HERBERTH Attestation Patient care was provided by Advanced Practice Provider:: No The physician spent face to face time with patient:: Yes Advanced Practice Provider documentation review:: Supervising physician onsite and consulted in the evaluation and care of this patient. The physician did have a face to face encounter with the patient. This chart was documented by the indicated scribe, (Ifrah Gacria Scribrabia) and accurately reflects the services I performed and decisions made by me, Clifton Raya MD, as attested by the provider's signature.
--- NOTE | 2018-04-01 09:41 | Diag Imaging Result Doc PS360 ---
EXAM: CT THORAX W/CONTRAST HISTORY: hemoptosis TECHNIQUE: Images were obtained from the lung apices through bases following IV contrast as per standard protocol. COMPARISON: 01/18/2017. Study from 07/08/2016 is unavailable for comparison. FINDINGS: Preliminary interpretation was given by [facility] teleradiology. The heart and mediastinum are unremarkable other than mild atherosclerotic calcification within the aorta. There is mild pulmonary emphysema. There are stable small nodules within the right middle lobe. Stable right upper lobe 7 mm noncalcified nodule image 44, stable right lower lobe 6 mm nodule image 58, stable 1 cm noncalcified nodule left lung is 37 abutting major fissure. There is a calcified granuloma right lower lobe. Right medial basal fibrosis associated with a large pedunculated osteophyte. No effusion. No pneumothorax. There is central bronchial wall thickening. IMPRESSION: 1.Multiple pulmonary nodules stable since 01/18/2017. Continued surveillance is recommended as per Fleischner's guidelines. 2.Pulmonary emphysema. 3.Central bronchial wall thickening. This exam was performed using automated exposure control, adjustment of mA or kV according to patient size, and/or use of iterative reconstruction technique. Electronically signed by Luann Mcclendon 04/01/2018 9:39 AM
[2018-04-01] MEDS ORDERED: DUONEB (A & A) INH PRN (12:13)
[2018-04-01 13:31] LABS: HEMATOCRIT 38.3 % (37.0-47.0); HEMOGLOBIN 12.5 g/dL (12.0-16.0); MCH 27.4 PG (27-31); MCHC 32.6 g/dL (33-37); RBC 4.56 XMIL (4.2-5.4); RDW 16.3 % (11.5-14.5); WBC 12.67 X1000 (4.8-10.8)
[2018-04-01 13:36] LABS: AGAP 12; BUN 10 mg/dL (8-22); CALCIUM 9.2 mg/dL (8.8-10.2); CHLORIDE 100 mmol/L (98-107); COSMO 286; CREATININE 0.6 mg/dL (0.5-0.9); ESTIMATED GFR > 60; GLUCOSE 342 mg/dL (70-104); POTASSIUM 4.7 mmol/L (3.5-5.1); SODIUM 137 mmol/L (136-145); TCO2 25 mmol/L (25-35)
[2018-04-01] MEDS: SOLU-MEDROL IV SCH ×2 (13:38→21:55)
[2018-04-01] MEDS: TYLENOL PO PRN ×2 (13:38→22:42)
[2018-04-01] MEDS: DUONEB (A & A) INH SCH ×3 (16:23→23:03)
--- NOTE | 2018-04-01 16:31 | HISTORY AND PHYSICAL ---
CHIEF COMPLAINT: Chest pain, shortness of breath, hemoptysis. HISTORY OF PRESENT ILLNESS: This is a 53-year-old female with a history of diabetes mellitus and bronchial asthma who presents to the emergency room complaining of hemoptysis with a COPD exacerbation. She was actually seen in the emergency room 24 hours prior and given steroid Dosepak and antibiotics, although she stated that the hemoptysis increased. Therefore, she returned to the ER without filling these medications. She does state that she has used her home medications with no decrease in her symptoms. She denied any syncope or dizziness, any palpitations, any fevers or chills. PAST MEDICAL HISTORY: 1. Diabetes mellitus type 2. 2. Gastroesophageal reflux disease. 3. Hypertension. 4. Chronic obstructive pulmonary disease. 5. Bronchial asthma. PAST SURGICAL HISTORY: Tubal ligation. SOCIAL HISTORY: She smokes about half a pack a day. She has rare alcohol use. She denies any illicit drug use. ALLERGIES: No known drug allergies. HOME MEDICATIONS: A list will be obtained by the nursing staff and once verified will review and restart as appropriate. REVIEW OF SYSTEMS: Discussed with patient with pertinent positives stated in the HPI. She denied any syncope, dizziness, any night sweats, any weight loss or weight gain, any palpitations, any nausea, vomiting, diarrhea, constipation, black or bloody vomitus or stools; hematuria, dysuria, frequency or urgency. PHYSICAL EXAMINATION: GENERAL: This is a 53-year-old female who is lying in the bed in no distress. VITAL SIGNS: Blood pressure is 156/79, heart rate 75, respirations are 20, temperature is 97.4 degrees with room air saturations being 96%. EYES: Pupils are equal, round, and react to light. EOMs are intact. Sclerae anicteric. HEENT: Head is normocephalic, atraumatic. Mucous membranes are moist. NECK: Supple with trachea midline. CARDIOVASCULAR: Regular rate and rhythm. S1 and S2 appreciated. Peripheral pulses are palpable x4 extremities. PULMONARY: Breath sounds with wheezes scattered throughout. Chest rises and falls symmetrically. Chest wall is nontender to palpation. She has no increased work of breathing. GASTROINTESTINAL: Abdomen is soft, nontender, nondistended with bowel sounds in all 4 quadrants. GENITOURINARY: She has no CVA nor suprapubic tenderness. SKIN: Warm and dry. NEUROLOGIC: She is alert and oriented x3. LABORATORY DATA: WBC is 12.6 with hemoglobin of 10.7, hematocrit 34.1, and platelets of 234,000. Sodium is 139, potassium 3.6, BUN 9, creatinine 0.6, glucose 181. CT of the chest revealed mild pulmonary emphysema with multiple pulmonary nodules, stable since 01/18/2017 and central bronchial wall thickening. ASSESSMENT AND PLAN: 1. Hemoptysis. 2. Diabetes mellitus. 3. History of tuberculosis at the age of [age] years old. 4. Hypertension. PLAN: 1. The patient has been admitted to [place] medical/surgical floor and placed on telemetry which will continue. We will give DuoNebs q.4 hours and q.2 hours p.r.n. We will give steroids to taper. We will identify her home medications and continue any. 2. History of tuberculosis. We will order QuantiFERON. We will also order Aspergillus as well as procalcitonin. 3. COPD exacerbation. We will give DuoNebs and steroids to taper. 4. Hypertension. We will monitor vital signs and continue home medicines as this is appropriate. 5. For DVT prophylaxis, of course, we will give no anticoagulation. We will use SCDs. 6. For GI prophylaxis, we will use Protonix. 7. When a bed is available, we will transfer the patient to [facility] for pulmonary evaluation. Dictated by FER Haque for Harshil Amador MD This chart was documented by, FER Haque and accurately reflects the services performed, treatment plan and medical decisions as attested by the providers signature Harshil Amador MD. cc: FER Haque MD
[2018-04-01] MEDS: LEVAQUIN 750 MG/D5W 750 MG/150 ML IVPB IV SCH (17:55)
[2018-04-01] MEDS: HUMALOG DOSE (PARKWAY) SUBQ SCH ×2 (17:55→21:55)
[2018-04-02] MEDS: HUMALOG DOSE (PARKWAY) SUBQ SCH ×5 (01:39→21:32)
[2018-04-02] MEDS: DUONEB (A & A) INH SCH ×6 (02:45→23:41)
[2018-04-02] MEDS: SOLU-MEDROL IV SCH ×3 (04:58→21:31)
[2018-04-02] MEDS: PRILOSEC PO SCH (06:29)
[2018-04-02 07:11] LABS: HEMATOCRIT 37.2 % (37.0-47.0); HEMOGLOBIN 11.7 g/dL (12.0-16.0); IMM GRAN# 0.02 X1000 (0.0-0.04); IMM GRAN% 0.1 % (0.0-0.5); LYMPH# 1.06 X1000 (1.2-3.4); LYMPH% 7.7 % (20.5-51.1); MCH 26.4 PG (27-31); MCHC 31.5 g/dL (33-37); MCV 83.8 FL (81-99); MONO# 0.41 X1000 (0.11-0.59); MPV 11.1 FL (7.4-10.4); NEUT# 12.25 X1000 (1.4-6.5); NEUT% 89.2 % (42.2-75.2); PLT 262 X1000 (130-400); RBC 4.44 XMIL (4.2-5.4); RDW 16.2 % (11.5-14.5); WBC 13.74 X1000 (4.8-10.8)
[2018-04-02 07:16] LABS: AGAP 11; BUN 16 mg/dL (8-22); CALCIUM 9.2 mg/dL (8.8-10.2); CHLORIDE 105 mmol/L (98-107); COSMO 286; CREATININE 0.6 mg/dL (0.5-0.9); ESTIMATED GFR > 60; GLUCOSE 266 mg/dL (70-104); POTASSIUM 4.2 mmol/L (3.5-5.1); SODIUM 138 mmol/L (136-145); TCO2 22 mmol/L (25-35)
[2018-04-02 07:36] LABS: ANISOCYTOSIS 1+; LYMPHS 7 % (21-51); MONO 2 % (1-9); SEGS 91 % (42-75)
[2018-04-02] MEDS ORDERED: VANCOMYCIN IV PER PHARMACY MISC SCH (10:30)
[2018-04-02] MEDS ORDERED: VANCOMYCIN 2,000 MG in NS 500 ML IV SCH (11:00)
[2018-04-02] MEDS: TYLENOL PO PRN (11:37)
[2018-04-02] MEDS ORDERED: NS 250 ML ONE (11:44)
--- NOTE | 2018-04-02 12:44 | PROGRESS NOTE ---
DATE: 04/02/2018 SUBJECTIVE: The patient continues to have cough and chest congestion although hemoptysis has improved. She has only yellowish sputum now. OBJECTIVE: Vital signs: Temperature 97.4 degrees, pulse 81 per minute, respiratory rate 25 per minute, blood pressure 143/53, pulse ox 98% on room air. General: The patient is alert and oriented x3. She does not appear to be in any acute distress. Cardiac: The 1st and 2nd heart sounds are audible without any murmurs or gallops. Respiratory: Bilateral lung air entry is moderately decreased with few coarse bilateral rales present on auscultation. Gastrointestinal: Abdomen is soft and nondistended. Normal bowel sounds are present. DIAGNOSTIC DATA: CBC shows a WBC count of 13.74, hemoglobin 11.7, and hematocrit 37.2. Platelet count was found to be normal at 262. Basic metabolic panel this morning showed glucose level of 266. The rest of the BMP is nondiagnostic. CT chest done yesterday showed multiple pulmonary nodules which are stable since 01/18/2017. There is also pulmonary emphysema and central bronchial wall thickening. Two sets of blood cultures have been positive for gram-positive cocci. This was a preliminary report. IMPRESSION: This is a 53-year-old female who has been admitted with hemoptysis and has a history of tuberculosis at age 12. She also has bacteremia with gram-positive cocci on blood cultures. Furthermore, she has a history of type 2 diabetes mellitus and hypertension. PLAN: The patient will be continued on levofloxacin IV, and we are going to add vancomycin IV to her antibiotic regimen. She will continue with IV methylprednisolone and also continue with lispro insulin as per sliding scale. We will continue with bronchodilators. Infectious Disease has been contacted over the phone, and they have recommended to transfer the patient to [facility]. We will transfer her to [facility] whenever a bed is available. cc: Leoncio Gonzalez MD
[2018-04-02] MEDS: LEVAQUIN 750 MG/D5W 750 MG/150 ML IVPB IV SCH (15:11)
[2018-04-03] MEDS: VANCOMYCIN 2,000 MG in NS 500 ML IV SCH ×2 (02:10→14:10)
[2018-04-03] MEDS: DUONEB (A & A) INH SCH ×6 (04:00→23:34)
[2018-04-03] MEDS: SOLU-MEDROL IV SCH ×3 (05:50→21:06)
[2018-04-03] MEDS: PRILOSEC PO SCH (06:07)
[2018-04-03] MEDS: HUMALOG DOSE (PARKWAY) SUBQ SCH (06:07)
[2018-04-03 07:54] LABS: HEMATOCRIT 36.5 % (37.0-47.0); HEMOGLOBIN 11.5 g/dL (12.0-16.0); IMM GRAN# 0.02 X1000 (0.0-0.04); IMM GRAN% 0.2 % (0.0-0.5); LYMPH# 0.99 X1000 (1.2-3.4); LYMPH% 8.5 % (20.5-51.1); MCH 26.7 PG (27-31); MCHC 31.5 g/dL (33-37); MCV 84.7 FL (81-99); MONO# 0.19 X1000 (0.11-0.59); MONO% 1.6 % (1.7-9.3); MPV 11.6 FL (7.4-10.4); NEUT# 10.51 X1000 (1.4-6.5); NEUT% 89.7 % (42.2-75.2); PLT 247 X1000 (130-400); RBC 4.31 XMIL (4.2-5.4); RDW 16.3 % (11.5-14.5); WBC 11.71 X1000 (4.8-10.8)
[2018-04-03 08:08] LABS: ANISOCYTOSIS OCCASIONAL; BANDS 2 % (0-1); LYMPHS 4 % (21-51); MICROCYTOSIS OCCASIONAL; SEGS 94 % (42-75)
[2018-04-03] MEDS ORDERED: DUONEB (A & A) INH PRN (09:45)
[2018-04-03] MEDS ORDERED: TYLENOL PO PRN (09:47)
--- NOTE | 2018-04-03 10:07 | PROGRESS NOTE ---
DATE: 04/03/2018 SUBJECTIVE: This morning Ms. Perez refers to be doing a little better. She denies any more hemoptysis. Coughing is also improving. OBJECTIVE: Vital signs: Blood pressure is 188/73, pulse 61, respirations 17, temperature 98.4 degrees. The patient was saturating 100% on room air. General exam: Ms. Perez is a 53-year-old female. She is in bed. She is not in any cardiopulmonary distress. HEENT: Mucosa is pink and moist. Anicteric. Acyanotic. Neck: Supple. Chest: Good air entry bilateral. There were no crepitations. There is an expiratory wheezing with prolonged expiratory phase of respiration. Cardiovascular: Regular rate and rhythm. No murmurs, no rubs, no gallops. Extremities: No pedal edema. ELECTROENCEPHALOGRAPH TECHNICIAN: Patient is awake, alert, oriented. There is no focal neurological deficit. LABORATORY DATA: WBC is 11.71, hemoglobin is 11.5, platelet count of 247. Chemistry is also reviewed; none for today. Glucose is 397. REVIEW OF IMAGING STUDIES: A CT scan which was done on the - shows multiple stable pulmonary nodules since 2017. There is a pulmonary emphysema. There is also central bronchial wall thickening. MICROBIOLOGY DATA: Blood culture /2 is positive for gram-positive cocci. ASSESSMENT: 1. Gram-positive cocci bacteremia. We are still pending the identification and sensitivity. We presume this is coming from the lungs. Infectious Disease has been consulted. The patient is currently on vancomycin and levofloxacin. 2. Chronic obstructive pulmonary disease exacerbation. We will continue with the current management. 3. Hemoptysis, likely due to the chronic obstructive pulmonary disease exacerbation and bronchopneumonia. However, the patient has an extensive history in the past of tuberculosis according to her at age 12, and was treated for a period of 6 months. There is concern that she could have a reactivated tuberculosis despite the computed tomography scan was not remarkable. Pulmonary Medicine has been consulted. 4. Uncontrolled diabetes mellitus. We will continue with insulin. Patient was on oral medications at home; however, she does have an A1c of 12.4 the last time it was checked. So, we will recheck this and then go from there. I presume she might be needing insulin for management in the short term. 5. Uncontrolled hypertension. We will start the patient back on her home medications including amlodipine and hydrochlorothiazide. cc: Jabier Basilio MD MTDD
[2018-04-03] MEDS: BASAGLAR SUBQ SCH (11:20)
[2018-04-03] MEDS: HUMULIN R SUBQ SCH ×4 (11:20→21:04)
[2018-04-03] MEDS ORDERED: LEVAQUIN 750 MG/D5W 750 MG/150 ML IVPB IV SCH (16:00)
--- NOTE | 2018-04-03 20:21 | PULMONOLOGY CONSULTATION ---
DATE: 04/03/2018 REQUESTING PHYSICIAN: Dr. Basilio. REASON FOR CONSULTATION: Hemoptysis with history of TB. HISTORY OF PRESENT ILLNESS: Ms. Perez is a 53-year-old black female with a 34 pack-year history for tobacco (continues to smoke) who was diagnosed with COPD approximately 2 years ago. She has not yet stopped smoking. The patient reports she was at her baseline until approximately 2 weeks ago when she developed increasing cough with sputum production. The patient was evaluated in the emergency room 03/30/2018 and was diagnosed with a COPD exacerbation. The patient was given amoxicillin and a steroid taper. The patient had continued cough with onset of bloody sputum/bright red blood after hard coughing. She would cough up to 1 tablespoon per day. She re- presented to the emergency room the following day and was admitted to [facility], [place]. CT scan of the thorax was performed which revealed 2 stable nodules which have been present since 01/18/2017 with 3 stable nodules. One in the right upper lobe, 1 in the right lower lobe and 1 in the left lung abutting the major fissure. Patient did have some bronchial wall thickening and emphysema but no evidence of pneumonia. The patient reports her hemoptysis has resolved. PAST MEDICAL HISTORY: 1. COPD with ongoing tobacco use. 2. History of TB exposure at the age of 12. She reports her mother's boyfriend had tuberculosis. She had a positive skin test and underwent prophylaxis treatment. She denies having a positive infiltrate on chest x-ray. 3. Diabetes mellitus. 4. Anxiety disorder. 5. Frequent ER reviews for different complaints. She was in the emergency room 15 times over the last year. 6. Hypertension. She reports she does not currently have a primary care physician. 7. Gastroesophageal reflux disease. 8. Morbid obesity with a BMI greater than 40. 9. Status post tubal ligation. SOCIAL HISTORY: The patient started smoking half a pack a day at the age of 19 and has been smoking a pack a day since that time. She stopped smoking last week when she became ill. Occasional alcohol use. Prior tobacco use as per above. FAMILY HISTORY: Noncontributory to current presentation. REVIEW OF SYSTEMS: Notable for cough, minor hemoptysis, sputum production, shortness of breath, and wheezing. Otherwise review of systems is negative. PHYSICAL EXAMINATION: General: Reveals a obese, healthy-appearing female in no distress. BP 176/68, heart rate 63, respiratory rate 16, oxygen saturation 98% on room air. HEENT: Pupils are equal and reactive. Oropharynx is clear. Neck: Supple. Chest: Reveals scattered wheezing and rhonchi bilaterally. Cardiac: S1-S2. Abdomen: Obese and soft. Extremities: Reveal trace edema. LABORATORIES: CT scan as per HPI. White blood count 11.71, hemoglobin 11.5, platelet count 247,000. Sodium 138, potassium 4.2, chloride 105, bicarbonate 22, BUN 16, creatinine 0.6, glucose since admission have all been over 200 and as high as 404. IMPRESSION: A 53-year-old with history of tuberculosis exposure with prophylactic treatment, chronic obstructive pulmonary disease with ongoing tobacco use, chronic obstructive pulmonary disease exacerbation, bronchial thickening/abnormal CT scan of the thorax with minor hemoptysis. I believe the hemoptysis is likely related to her chronic obstructive pulmonary disease exacerbation along with forced coughing and she is likely rupturing bronchial vessels. Tuberculosis would be less likely given her history, prophylactic treatment, and acute 2 week illness. We will await the QuantiFERON gold TB test results. RECOMMENDATIONS: 1. Strongly encourage patient to discontinue tobacco use. 2. Continue treatment for COPD exacerbation. 3. The patient was encouraged to obtain a primary care physician. She has frequently come to the ER. She also needs to have her blood pressure and sugar controlled. 4. Weight loss is recommended. 5. Consider outpatient bronchoscopy in 4 to 5 weeks when her acute COPD exacerbation has resolved. cc: Jason Nolasco MD
[2018-04-03] MEDS ORDERED: HUMALOG SUBQ ONE (23:24)
[2018-04-04] MEDS: VANCOMYCIN 2,000 MG in NS 500 ML IV SCH ×2 (00:06→13:54)
[2018-04-04] MEDS: SOLU-MEDROL IV SCH ×3 (04:20→20:47)
[2018-04-04] MEDS: DUONEB (A & A) INH SCH ×6 (04:40→23:20)
[2018-04-04] MEDS: PRILOSEC PO SCH (06:31)
[2018-04-04] MEDS: HUMULIN R SUBQ SCH ×4 (06:31→20:48)
[2018-04-04] MEDS ORDERED: ROBAXIN PO PRN (07:29)
[2018-04-04] MEDS ORDERED: VENTOLIN HFA INH PRN (07:29)
[2018-04-04 07:56] LABS: HEMATOCRIT 36.8 % (37.0-47.0); HEMOGLOBIN 11.6 g/dL (12.0-16.0); IMM GRAN# 0.08 X1000 (0.0-0.04); IMM GRAN% 0.8 % (0.0-0.5); LYMPH# 0.94 X1000 (1.2-3.4); LYMPH% 8.9 % (20.5-51.1); MCH 26.9 PG (27-31); MCHC 31.5 g/dL (33-37); MCV 85.4 FL (81-99); MONO# 0.26 X1000 (0.11-0.59); MONO% 2.5 % (1.7-9.3); MPV 11.4 FL (7.4-10.4); NEUT# 9.24 X1000 (1.4-6.5); NEUT% 87.8 % (42.2-75.2); PLT 260 X1000 (130-400); RBC 4.31 XMIL (4.2-5.4); RDW 16.4 % (11.5-14.5); WBC 10.52 X1000 (4.8-10.8)
[2018-04-04 08:13] LABS: HEMOGLOBIN A1C 9.5 % (4.8-6.0)
[2018-04-04 08:15] LABS: BANDS 2 % (0-1); LYMPHS 16 % (21-51); MONO 2 % (1-9); SEGS 78 % (42-75)
[2018-04-04 08:16] LABS: ANISOCYTOSIS 1+; HYPOCHROM OCCASIONAL; MICROCYTOSIS 1+
[2018-04-04 08:22] LABS: AGAP 14; BUN 16 mg/dL (8-22); CALCIUM 7.8 mg/dL (8.8-10.2); CHLORIDE 105 mmol/L (98-107); COSMO 296; CREATININE 0.7 mg/dL (0.5-0.9); ESTIMATED GFR > 60; GLUCOSE 336 mg/dL (70-104); POTASSIUM 4.3 mmol/L (3.5-5.1); SODIUM 141 mmol/L (136-145); TCO2 22 mmol/L (25-35)
[2018-04-04] MEDS: HYDROCHLOROTHIAZIDE PO SCH (10:07)
[2018-04-04] MEDS: BUSPAR PO SCH (10:07)
[2018-04-04] MEDS: CATAPRES PO SCH ×2 (10:08→20:47)
[2018-04-04] MEDS: BASAGLAR SUBQ SCH (10:08)
[2018-04-04] MEDS: NORVASC PO SCH (10:08)
[2018-04-04] MEDS: ADVAIR 500/50 DISKUS INH SCH ×2 (11:18→19:50)
[2018-04-04] MEDS ORDERED: BASAGLAR SUBQ ONE (11:46)
--- NOTE | 2018-04-04 12:37 | PROGRESS NOTE ---
DATE: 04/04/2018 SUBJECTIVE: This morning Ms. Perez refers to be doing fairly okay. Still coughing, but no hemoptysis. According to her, she has also been feeling very anxious and she has been treated in the past for anxiety disorder. OBJECTIVE: Vital signs: Blood pressure 184/72, pulse of 59, respirations 20, temperature 97.9 degrees. General: Ms. Perez is a 53-year-old female. She is in bed, she was not in any cardiopulmonary distress. HEENT: Mucosa is pink and moist. Anicteric. Acyanotic. Neck: Supple. Respiratory: Air entry was bilaterally reduced. There is still prolonged expiratory phase of respiration. There is some isolated expiratory wheezing as well. Cardiovascular: Regular rate and rhythm. No murmurs, no rubs, no gallops. Abdomen: Soft, nontender. Bowel sounds present. Extremities: No pedal edema. BIOMETRICIAN: Patient was awake, alert, oriented. There is no focal neurological deficit. LABORATORY DATA: WBC is down to 10.52, hemoglobin is 11.6, platelet count of 260,000. Chemistry is also reviewed. Completely normal except for glucose of 336. Patient A1c was 9.5. CURRENT MEDICATIONS: 1. Albuterol nebulizers. 2. Norvasc 10 mg daily. 3. Buspirone 5 mg p.o. daily. 4. Clonidine 0.1 b.i.d. 5. Hydrochlorothiazide 25 mg daily. 6. Insulin has been uptitrated. 7. Vancomycin per pharmacy protocol. 8. Levaquin 750 daily. ASSESSMENT: 1. Gram-positive cocci bacteremia. We are still pending the ID and sensitivity. 2. COPD, in acute exacerbation. We will continue with nebulization, steroids and antibiotics. 3. Hemoptysis secondary to COPD. Patient has been evaluated by Pulmonary Medicine. Recommendation is to continue with the current management and patient to be followed up for outpatient bronchoscopy once the exacerbation is under control. 4. Diabetes mellitus with presenting A1c of 9.5. We will continue with the current insulin regimen. 5. Uncontrolled hypertension. We have started the patient on her home medications. 6. Anxiety disorder. Patient has been started on BuSpar which according to her she was on before. PLAN: So in general, I think Ms. Perez is doing a lot better. Does not have any more hemoptysis. Bronchospasm seems to be getting better. Hopefully, tomorrow we might be able to discharge her depending on how she is clinically. We will also be pending further recommendations from Pulmonary Medicine. cc: Jabier Basilio MD MTDTyler
[2018-04-04] MEDS ORDERED: ROCEPHIN 2 GM in NS 50 ML IV SCH (15:00)
[2018-04-04] MEDS: MYLICON PO PRN (16:25)
--- NOTE | 2018-04-04 19:07 | INFECTIOUS DISEASE CONSULT REP ---
DATE: 04/04/2018 CONCLUSION: The patient has been admitted to the hospital and she is found to have a gram- positive coccal bacteremia. Since both blood cultures are positive I think this represents a true bacteremia. The organisms look to be more like a Streptococcus rather than staph. Therefore, I think the patient has a streptococcal bacteremia which could be due to Streptococcus pneumoniae. Most likely this would originate from the chest given the fact that the patient is coughing and having hemoptysis, although on CT scan there is no infiltrate but there are nodules which have been present for months and are stable. The patient has a history of having TB as a child. She told me she was given 1 pill a day for approximately 3 months. She took all the medicine and she was told she did not need any more. 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 Also, I agree with Dr. Nolasco that the patient's rapid onset of symptoms would be against the patient having TB also. RECOMMENDATIONS: I have ordered immunoglobulin levels. I have discontinued Levaquin and put the patient on Rocephin. I agree with continuing vancomycin. A procalcitonin and QuantiFERON have already been ordered. DISCUSSION: Patient said approximately 10 days ago she started wheezing and having a cough and occasionally she had hemoptysis. The patient's studies thus far show a CBC that the white count has come down now to 10,520, hemoglobin 11.6 and platelet count 260,000. Creatinine is 0.7. GFR is greater than 60. Aspergillus IgG antibody was negative. Sputum grew a normal nael. Two separate blood cultures are growing gram-positive cocci. CT scan of the chest shows multiple pulmonary nodules which have not changed since January 2017. The CT scan also showed emphysema. PAST MEDICAL HISTORY/REVIEW OF SYSTEMS: Eyes and ears: She has decreased vision but her hearing is okay. Neck: No stiffness. Respiratory: See present illness. Cardiac: No chest pain or palpitations. GI: The patient for years has had intermittent episodes of constipation. Bones, joints, muscles: She complains of having pain in both knees over years. Endocrine: Patient is diabetic but she does not have thyroid disease. Neurologic: No seizures. No recent loss of motor or sensory function. Integument: No rash. 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 She has had a tubal ligation. PREVIOUS HOSPITALIZATIONS AN OPERATIONS: She has had labor and deliveries, miscarriages and tubal ligation. MEDICAL DISEASES: Positive for morbid obesity, diabetes mellitus, hypertension, and gastroesophageal reflux disease. INFECTIOUS DISEASE HISTORY: See my dictation under present illness about the patient's history of tuberculosis. The patient also has had a urinary tract infection. FAMILY HISTORY: Positive for diabetes mellitus, hypertension, cancer, and tuberculosis. SOCIAL HISTORY: [place] She is . 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 She smokes cigarettes and occasionally drinks alcoholic beverages but does not use drugs. PHYSICAL EXAMINATION: Vital Signs: Temperature is 97.3 degrees, pulse 63, respirations 22, blood pressure 155/72. Patient weighs 250 pounds. General: This is a morbidly obese, middle-aged female. She continued to cough the whole time I was examining her and talking to her. She did bring up some sputum but it was white in color and there was not any blood seen with it. Head/eyes/ears/nose/throat: She can hear my spoken words and see near objects. She does not have any white coating on her tongue. Sinuses are not tender. Neck: No meningismus. Thorax: No increased AP diameter of the chest. Lungs: Clear to auscultation. Cardiovascular: Heart rate is regular. Abdomen: Soft and nontender. Neurologic: Patient is alert. She can move her extremities. There is no tremor. Her sensation was intact to touch. Her memory as regarding her medical history was intact. Extremities: Patient has bilateral leg edema but no erythema. Bones, joints, muscles: No muscle tenderness or swollen joints. Thank you for the consult. cc: Horacio Naranjo MD
[2018-04-05] MEDS: VANCOMYCIN 2,000 MG in NS 500 ML IV SCH (00:22)
[2018-04-05] MEDS: DUONEB (A & A) INH SCH ×6 (03:28→23:05)
[2018-04-05] MEDS: PRILOSEC PO SCH ×2 (05:57→06:44)
[2018-04-05] MEDS: SOLU-MEDROL IV SCH ×2 (05:57→18:25)
[2018-04-05] MEDS: HUMULIN R SUBQ SCH ×4 (05:59→16:36)
--- NOTE | 2018-04-05 06:45 | Diag Imaging Result Doc PS360 ---
EXAM: CHEST-PORTABLE HISTORY: dyspnea TECHNIQUE: Chest single view COMPARISON: 03/30/2018 FINDINGS: The lungs are well expanded. The heart is borderline mildly prominent. The vessels are not distended. There are no infiltrates. No effusion identified. IMPRESSION: No pulmonary edema. Electronically signed by Abimael Colby 04/05/2018 6:42 AM
[2018-04-05 07:19] LABS: HEMATOCRIT 35.1 % (37.0-47.0); HEMOGLOBIN 11.2 g/dL (12.0-16.0); MCH 27.1 PG (27-31); MCHC 31.9 g/dL (33-37); MPV 11.4 FL (7.4-10.4); RBC 4.13 XMIL (4.2-5.4); RDW 16.2 % (11.5-14.5); WBC 10.63 X1000 (4.8-10.8)
[2018-04-05] MEDS: ADVAIR 500/50 DISKUS INH SCH ×2 (07:35→23:05)
[2018-04-05 07:41] LABS: AGAP 12; ALB/GLOB RATIO 1.3; ALBUMIN 3.7 g/dL (3.5-5.0); ALKALINE PHOSPHATASE 68 U/L (32-104); BUN 18 mg/dL (8-22); CALCIUM 8.2 mg/dL (8.8-10.2); CHLORIDE 102 mmol/L (98-107); COSMO 291; CREATININE 0.7 mg/dL (0.5-0.9); ESTIMATED GFR > 60; GLUCOSE 373 mg/dL (70-104); GOT 9 U/L (10-30); GPT 28 U/L (10-36); POTASSIUM 4.3 mmol/L (3.5-5.1); SODIUM 137 mmol/L (136-145); TCO2 23 mmol/L (25-35); TOTAL BILIRUBIN 0.16 mg/dL (0.20-1.00); TOTAL PROTEIN 6.6 g/dL (6.3-8.3)
--- NOTE | 2018-04-05 08:30 | ECHO REPORT ---
ORDER DATE: 04/03/2018 INTERPRETING PHYSICIAN: Khris Lubin MD. INDICATION: A 53-year-old female with gram-positive cocci bacteremia, possible endocarditis. M-MODE MEASUREMENTS: Left ventricle end diastole: 4.9 cm. Left ventricle end systole: 2.8 cm. Posterior wall: 1.2 cm. Interventricular septum: 1.2 cm. Left atrium: 4.6 cm. Aortic root: 2.7 cm. SUMMARY OF 2-DIMENSIONAL IMAGIN. The left ventricular function appears to be normal, ejection fraction of 68%. No wall motion abnormality noted. A mild degree of concentric LVH. 2. The right ventricle appears to be mildly enlarged. 3. The left atrium is probably at the upper limits of normal. 4. The mitral valve shows a mild degree of regurgitation. Pulsed wave Doppler of mitral inflow is normal. Tissue Doppler of septal and lateral mitral annulus averages 8 cm. 5. The aortic valve has 3 cusps. Color flow mapping shows no significant aortic regurgitation. However, the cusps have an unusual thickening which does not have the appearance of aortic stenosis. This may be worth examining with a transesophageal echo. 6. The pulsed wave Doppler of pulmonary venous flow is normal. 7. The tricuspid valve shows a mild degree of regurgitation. Pulmonary systolic pressure estimated at 45 mmHg. 8. The pulmonic valve appears to be normal. 9. There is no pericardial effusion, masses, nor thrombus. SUMMARY: In summary, this study shows: 1. Normal left ventricular systolic function with a mild degree of concentric LVH. 2. A mild degree of pulmonary hypertension estimated at 45 mmHg. 3. Moderately enlarged left atrium. 4. No definite diastolic dysfunction. 5. Unusual thickening of the aortic valve cusps. Consider transesophageal echocardiogram if indeed blood cultures show evidence of microorganism that is likely to cause endocarditis. cc: MD Jabier Michaels MD
[2018-04-05] MEDS: BUSPAR PO SCH (09:40)
[2018-04-05] MEDS: BASAGLAR SUBQ SCH (09:40)
[2018-04-05] MEDS: CATAPRES PO SCH ×2 (09:41→23:03)
[2018-04-05] MEDS: HYDROCHLOROTHIAZIDE PO SCH (09:41)
[2018-04-05] MEDS: NORVASC PO SCH (09:41)
[2018-04-05] MEDS: UNASYN 3 GM/NS 3 GM/100 ML IVPB IV SCH ×3 (09:59→23:04)
--- NOTE | 2018-04-05 15:54 | Diag Imaging Result Doc PS360 ---
EXAM: CT MAXILLOFACIAL(SINUS) W/O CO 04/05/2018 HISTORY: sinusitis TECHNIQUE: CT of the paranasal sinuses COMMENT: The visualized paranasal sinuses are clear. There is no evidence of acute bony abnormality. The middle ear cavities are pneumatized and the mastoids are clear. There is pneumatization of the petrous apex on the left. IMPRESSION: No evidence of paranasal sinusitis. Electronically signed by Steven Holly 04/05/2018 3:51 PM
[2018-04-05] MEDS: COZAAR PO SCH (16:58)
--- NOTE | 2018-04-05 17:22 | PROGRESS NOTE ---
DATE: 04/05/2018 SUBJECTIVE: Today Ms. Perez refers to be doing a lot better. Denies any complaints. Still has some residual cough, but no hemoptysis. Patient denies any fever. OBJECTIVE: Vital signs: Blood pressure is 187/86, pulse is 75, respirations 20 , temperature is 98.0 degrees. General: Ms. Perez is 53-year-old female. She was in the bed. No distress. HEENT: Mucosa was pink and moist. Anicteric. Acyanotic. Neck: Supple. Chest: Air entry was bilaterally reduced. There is prolonged expiratory phase of respiration. There are some few isolated wheezing posteriorly. Cardiovascular: Regular rate and rhythm. No murmurs, no rubs, no gallops. Abdomen: Soft, nontender. Bowel sounds present. Extremities: No pedal edema. Central nervous system: Patient was awake, alert, oriented. There is no focal neurological deficit. DIAGNOSTIC DATA: WBC is down to 10.68, hemoglobin is 11.2, platelet count of 262,000. Chemistry is also reviewed and is completely unremarkable. Glucose was 273 because of the steroid that she is getting, and also A1c was 9.5. Patient has uncontrolled diabetes. ASSESSMENT: 1. Peptostreptococcus prevotii bacteremia, presumably coming from the lungs. Patient does have very poor dentition, and she could have been aspirating some into the lungs. ID has been consulted. Antibiotic has been switched to Unasyn, and blood cultures have been repeated. 2. Chronic obstructive pulmonary disease (COPD) exacerbation, stable. 3. Hemoptysis secondary to chronic obstructive pulmonary disease (COPD) exacerbation. Pulmonary Medicine has been on board. The patient has been recommended to follow up for outpatient bronchoscopy once the lung infection is clear. 4. Diabetes mellitus with presenting A1c of 9.5. Patient is currently on insulin regimen. 5. Uncontrolled hypertension. Patient is on home medications at this point. We have added losartan. 6. Anxiety disorder. Noted. 7. Tobacco abuse patient has been counseled. 8. History of previous contact with tuberculosis (TB). The patient said she was treated for about 6 months; at the time, she was about 12 years old. Her gold QuantiFERON test is positive. ID is aware and I have discussed with him. He plans to refer her to the [facility] for treatment and follow-up. Patient's current chest x- ray is negative for any evidence of active and ongoing tuberculosis so I do not think she is currently infectious. PLAN: In general, I think Ms. Perez is getting better. I thought she could be discharged today; however, because she was bacteremic, ID prefers to repeat the blood culture, and if it is negative, then they will go ahead and put in a PICC line and then get her home on IV antibiotics. A CT scan of the sinuses is negative. cc: Jabier Basilio MD MTDD
--- NOTE | 2018-04-05 19:05 | INFECTIOUS DISEASE PROGRESS NO ---
DATE: 04/05/2018 PRESENT ILLNESS: The patient has 2 blood cultures positive for Peptostreptococcus. The origin of this bacteremia is uncertain to me. The patient was coughing a lot when she came in and possibly it came from a pulmonary focus. The patient's chest x-ray is clear, but on CT scan, nodules in the lung were seen. Also, I think it is possible that the Peptostreptococcus could have come from sinusitis. The patient also has a positive QuantiFERON TB test. This may be a positive test due to the fact that the patient had TB years ago and does not necessarily mean that she has active disease now. On the other hand, however, it may indicate that she does have active disease. She told me that she has recently been around active TB patients and she does have nodules in her lungs. MEDICATIONS: I am not going to start the patient on antituberculosis medications. Rather, I am going to refer her to the Health Department and they can make a decision as to if they think the patient needs further treatment for TB. Apparently, she received treatment many years ago. OBJECTIVE: Vital signs: Temperature is 98 degrees, pulse 75, respirations 20, blood pressure 187/86. General: Generally, this is an obese middle-aged female. Today, she looks much better than yesterday. She did not cough at all when I was in the room and she did not seem short of breath. HEAD EYES EARS, NOSE AND THROAT: No drainage noted from the nose or ears. The left maxillary and frontal sinus seemed a little bit tender. She does not have any white patches on her tongue.Neck: No meningismus. Lungs: Clear to auscultation. Cardiovascular: Rate is regular. Abdomen: Soft and nontender. Neurologic: The patient is alert. She can ambulate without difficulty. There is no tremor. LAB AND X-RAY: The patient's immunoglobulin G level was 1093. The IgA level was 204. Both of these are normal. The patient's chest x-ray shows clear lung carrasco. CT scan of the chest shows pulmonary nodules as mentioned above. The patient's procalcitonin level is less than 0.1, which is interpreted to mean that it is very unlikely she has pneumonia. The Aspergillus IgG antibody was 5.9, which is in the range of being negative because a value that is not positive is less than or equal to 102 and her level is 5.9. [place] [address], hemoglobin 11.2, and platelet count of 262,000. Creatinine is 0.7, GFR is greater than 60. ASSESSMENT AND PLAN: The patient has a Peptostreptococcus bacteremia the origin of which is discussed above. For now, I am going to treat her with Unasyn. I have ordered tomorrow to have repeat blood cultures and if they are sterile then we will treat the patient for a total of 14 days with day 1 being the first day that the blood cultures were negative. As I mentioned above, I also plan to send the patient back to the Health Department for them to decide what if anything needs to be done about her positive QuantiFERON test and the fact that she has lung nodules. 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 The patient also has gastroesophageal reflux disease. cc: Horacio Naranjo MD
[2018-04-06] MEDS: HUMULIN R SUBQ SCH ×6 (01:50→20:09)
--- NOTE | 2018-04-06 03:01 | PULMONOLOGY PROGRESS NOTE ---
DATE: 04/05/2018 SUBJECTIVE: The patient reports she feels better. She has cough, but it is diminished. She denies shortness of breath. OBJECTIVE: Vital Signs: The patient has been afebrile for the last 24 hours. Blood pressure 157/72, heart rate 64, respiratory rate 20, oxygen saturation 97%. HEENT: Pupils are equal and reactive. Oropharynx reveals some gingivitis which the patient reports has been severe over the last couple years. Neck: Supple. Chest: Reveals good air entry bilaterally with minimal wheezing. Cardiac: S1, S2. Abdomen: Soft. Extremities: Without edema. LABORATORY DATA: The patient has 2 blood cultures, which revealed peptostreptococcus. White blood count 10.6, hemoglobin 11.2. Sodium 137, potassium 4.3, chloride 102, bicarbonate 23, BUN 18, creatinine 0.7. QuantiFERON gold TB test is positive. Echocardiogram is pending. Maxillofacial CT scan reveals no evidence of sinusitis. IMPRESSION: The patient is an interesting 53-year-old white female with hemoptysis, COPD exacerbation, ongoing tobacco use, Peptostreptococcus bacteremia, history of prior treatment for tuberculosis. The source of the Peptostreptococcus is not clear and is not clear the meaning of her QuantiFERON gold TB test. She does not have active pneumonitis on her CT scan, but only has stable pulmonary nodules. She does not appear to clinically have active tuberculosis. It is possible that the QuantiFERON is a false- positive. I agree with Dr. Naranjo' plan to hold tuberculosis medicines at this time. She will be referred to the health department and a repeat QuantiFERON should be obtained when she does not have an active bacteremia. RECOMMENDATIONS: 1. Continue antibiotics for Peptostreptococcus infection. 2. Await echocardiogram results. 3. Consider outpatient bronchoscopy for smoking history and hemoptysis. 4. Smoking cessation has been recommended. 5. Anticipate referral to the health department for positive PPD. 6. Consider outpatient bronchoscopy in 4-5 weeks. 7. Continue weaning steroids as tolerated. cc: Jason Nolasco MD MTDD
[2018-04-06] MEDS: DUONEB (A & A) INH SCH ×6 (04:07→23:42)
[2018-04-06] MEDS: UNASYN 3 GM/NS 3 GM/100 ML IVPB IV SCH ×5 (04:30→21:00)
[2018-04-06] MEDS: PRILOSEC PO SCH (06:37)
[2018-04-06] MEDS: SOLU-MEDROL IV SCH ×2 (06:37→18:33)
[2018-04-06] MEDS: BUSPAR PO SCH (09:04)
[2018-04-06] MEDS: HYDROCHLOROTHIAZIDE PO SCH (09:04)
[2018-04-06] MEDS: CATAPRES PO SCH ×2 (09:04→20:09)
[2018-04-06] MEDS: NORVASC PO SCH (09:04)
[2018-04-06] MEDS: BASAGLAR SUBQ SCH (09:06)
[2018-04-06] MEDS: COZAAR PO SCH (09:08)
[2018-04-06] MEDS: ADVAIR 500/50 DISKUS INH SCH ×2 (10:42→19:40)
[2018-04-06 14:37] LABS: ANTINEUTROPHIL CYTOPLASMIC AB SEE COMMENTS
--- NOTE | 2018-04-06 15:31 | PROGRESS NOTE ---
DATE: 04/06/2018 SUBJECTIVE: Patient reports feeling fine. Denies any fever, chills, any chest pain. OBJECTIVE: Vital Signs: Temperature 98.4 degrees, heart rate 63, respiratory rate 18, blood pressure 129/68, O2 saturation 99% on room air. General examination: This is a 53-year-old female, lying in bed in no acute distress. HEENT: Head is normocephalic, atraumatic. Mucous membranes moist. Neck: No JVD noted. No carotid bruits. No lymphadenopathy. No thyromegaly. Cardiovascular exam: S1, S2 heard. No murmurs, gallops, or rubs. Regular rate and rhythm. Respiratory exam: Globally decreased air entry with prolonged respiratory phase of respiration, minimal wheezing noted in both bases. Patient is not using any accessory muscles or having work of breathing. Abdomen: Soft, nontender to palpation. Bowel sounds present. No organomegaly. Extremities: No clubbing, cyanosis, or edema. Peripheral pulses present in both legs. Neurological exam: Patient is alert and oriented x3. Moves 4 extremities. LABORATORY DATA: White cell count 10.63, hemoglobin 11.2, hematocrit 35.1, platelets 262. ASSESSMENT: 1. Peptostreptococcus prevotii bacteremia. The patient is not developing any fever. White count has been normal during the last previous day. We know exactly where this infection came from. Patient does have very poor dentition and also she could have aspirated from lungs. In any case, the patient has been placed on Unasyn and blood culture has been repeated today. Initially Infectious Disease is planning to provide 14 days of antibiotics, but considering the transthoracic echocardiogram, there is finding concerning for endocarditis as well. We are going to consult Cardiology to do a transesophageal echocardiogram, and we will go from there. 2. Chronic obstructive pulmonary disease. The patient is not on any exacerbation. We will provide breathing treatments as needed. 3. Hemoptysis secondary to chronic obstructive pulmonary disease. Pulmonary following this patient. Patient will need outpatient bronchoscopy. 4. Controlled hypertension. Blood pressure is better today. We will continue to monitor systolic blood pressure every 4 hours. 5. History of previous contact with tuberculosis. the patient is going to be referred to [facility] because she had a positive QuantiFERON. She has had tuberculosis many years ago, but she was treated. PLAN: At this point, the plan is to perform DUSTIN to see if the patient does have truly endocarditis because, if that is the case, she will probably need 6 weeks of antibiotics. If that exam is negative, she will need two weeks of antibiotics as outlined by Infectious Disease. Also, we have to wait until next to see if blood cultures are negative. Then, we can place a PICC line and send this patient home with home antibiotics. cc: Harshil Amador MD
--- NOTE | 2018-04-06 15:34 | INFECTIOUS DISEASE PROGRESS NO ---
DATE: 04/06/2018 PRESENT ILLNESS: Ms. Perez has a peptostreptococcal bacteremia, the origin of which is uncertain. There is a positive QuantiFERON TB test; however, the patient has had TB in the past, so this may or may not indicate active disease. MEDICATIONS: She is on day 1 of Unasyn 3 grams IV every 6 hours. PHYSICAL EXAMINATION: Vital Signs: Temperature is 98.4, pulse rate 54, respiratory rate 18, blood pressure 129/68, O2 saturation 99% on room air. General: This is a healthy-appearing, middle-aged morbidly obese female. She is lying in the bed on her left lateral side, currently in no acute distress. HEENT: Atraumatic, normocephalic. Oral mucous membranes are pink and moist. Conjunctivae are pink. Neck: Supple. Trachea is midline. Respiratory: Lung sounds have wheezing noted bilaterally. Cardiovascular: Heart rate is regular. Pedal and radial pulses are +2 bilaterally. Abdomen: Soft, obese, and nontender. Bowel sounds are active. Neurologic: She is awake, alert, oriented, and able to move around in the bed independently. LABORATORY AND X-RAY: None available today. ASSESSMENT AND PLAN: Ms. Perez has peptostreptococcal bacteremia. She is receiving Unasyn 3 grams intravenously every 6 hours, which we will continue at this time. She has had a set of blood cultures drawn this morning, which are preliminary. We are hoping that these will be negative in order to be her start date for the 2 week bacteremia treatment. Also, she will need a peripherally inserted central catheter line put in for home intravenous antibiotics once those are negative. She has had an echocardiogram, which shows unusual thickening of the aortic valve cusps. We have spoken to Dr. Valentin about this, and he will consult Cardiology to consider transesophageal echocardiogram to rule out endocarditis. These plans have been discussed with and recommended by Dr. Naranjo. COMORBIDITIES: The comorbidities for Ms. 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 Dictated by FER Mccoy for Horacio Naranjo MD This chart was documented by, FER Mccoy and accurately reflects the services performed, treatment plan and medical decisions as attested by the providers signature Horacio Naranjo MD. cc: Horacio Naranjo MD MTDD
--- NOTE | 2018-04-06 19:49 | CONSULTATION ---
DATE OF CONSULTATION: 04/06/2018 IMPRESSION: 1. Consulted for pursuit of transesophageal echocardiography to further evaluate Peptostreptococcus bacteremia and thickening of aortic valve leaflets. 2. Patient currently admitted with cough and hemoptysis with suspected bronchitis and sinusitis. 3. Chronic obstructive pulmonary disease. 4. Prior tuberculosis in the past. Patient has been treated several years ago for tuberculosis. 5. Diabetes mellitus type 2. 6. Obesity. 7. Hypertension. 8. Gastroesophageal reflux disease. 9. Ongoing cigarette use. RECOMMENDATIONS: 1. Indications and potential risks of transesophageal echocardiography discussed with patient. She wished to proceed. 2. Smoking cessation strongly advised. HISTORY: This 53-year-old -[place] female with past history of COPD, chronic ongoing cigarette use, previous TB exposure at age of 12, diabetes mellitus, and hypertension was admitted several days ago with cough and hemoptysis as well as shortness of breath. She is felt to have acute bronchitis and sinusitis. There is no clear indication pneumonia. She has had some pulmonary nodules noted. Blood cultures grew Peptostreptococcus. Echocardiography indicated some thickening of aortic valve leaflets. Transesophageal echocardiography was requested by infectious disease service to clarify echocardiography findings and exclude endocarditis. PAST MEDICAL HISTORY: Patient has history of chronic cigarette use. She does not use illicit drugs. She drinks occasional alcoholic beverage. 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 There has been no fever or chills. PAST MEDICAL HISTORY: 1. COPD. 2. Diabetes mellitus type 2. 3. Obesity. 4. Hypertension. 5. Gastroesophageal reflux. 6. Previous atypical chest pain with negative cardiac workup in the past. 7. History of TB exposure at age 12 with subsequent positive skin test. Patient has had prophylactic treatment for her positive TB skin test. 8. Status post tubal ligation. ALLERGIES: She has no known drug allergies. MEDICATIONS: Prior to admission as listed. SOCIAL HISTORY: She smokes a pack and half cigarettes per day. She drinks occasional alcoholic beverage. 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 FAMILY HISTORY: Negative for premature coronary disease. REVIEW OF SYSTEMS: Pulmonary: Noteworthy for cough and hemoptysis. Gastrointestinal: Noncontributory beyond history present illness. Constitutional: Noncontributory beyond history of present illness. Remainder review of systems negative/noncontributory beyond history of present illness with 14 total systems reviewed. PHYSICAL EXAMINATION: General: This is a overweight middle-aged female in no distress. Vital signs: Blood pressure 134/71, heart rate 75 and regular, oxygen saturation 98% on room air. HEENT: Extraocular movements intact. Mucous membranes are moist. Neck: Supple. No jugular venous distention. No carotid bruits. Chest: Clear to auscultation bilaterally. Cardiac Exam: Reveals a regular rate and rhythm without appreciable murmur or gallop. Abdomen: Soft, nontender. Bowel sounds audible. Extremities: Without edema. There are no peripheral stigmata of endocarditis. Neurologic: Reveals her to be alert and fully oriented. Speech is fluent. She moves all 4 extremities equally well. Skin: Warm and dry. Psychiatric: Reveals mood to be appropriate. DATA: Echocardiography reports thickening of aortic valve leaflets. There is no significant aortic regurgitation. Left ventricular ejection fraction is normal. There is mild concentric left hypertrophy. LABORATORY DATA: Includes a white blood cell count 10.63, hematocrit 35.1, hemoglobin 11.1, platelet count 262,000, sodium 137, potassium 4.3, chloride 102, carbon dioxide 23, BUN 18, creatinine 0.7, glucose 373. cc: Rogelio Jarrett MD
--- NOTE | 2018-04-06 20:50 | PULMONOLOGY PROGRESS NOTE ---
DATE: 04/06/2018 SUBJECTIVE: Patient is awake, alert, and conversant. She reports her breathing has improved. Her sputum production continues to diminish. OBJECTIVE: Vital Signs: The patient has been afebrile for the last 24 hours. Blood pressure 134/71, heart rate 75, respiratory rate 19, oxygen saturation 98% on room air. HEENT: Pupils are equal and reactive. Oropharynx is clear. Neck: Supple. Chest: Chest reveals minimal wheezing bilaterally. Cardiac: S1, S2. Abdomen: Obese and soft. Extremities: Without edema. LABORATORIES: Fingerstick blood sugars remain elevated. CT scan of the paranasal sinuses revealed no evidence of sinusitis. Echocardiogram reveals some thickening of the aortic valve. DUSTIN recommended. IMPRESSION: A 53-year-old female with hemoptysis, pepto-streptococcus bacteremia, history of tuberculosis, positive QuantiFERON gold TB test, COPD exacerbation, stable pulmonary nodules, with abnormal aortic valve. RECOMMENDATIONS: 1. Agree with repeat blood cultures to ensure she is no longer bacteremic. 2. Smoking cessation has been strongly recommended. 3. Recommend steroid weaning given ongoing bacteremia. 4. Anticipate DUSTIN. 5. Anticipate referral to the health department for a positive PPD. 6. Recommend outpatient bronchoscopy in 4 to 5 weeks. cc: Jason Nolasco MD
[2018-04-07] MEDS: DUONEB (A & A) INH SCH ×6 (03:50→23:10)
[2018-04-07] MEDS: UNASYN 3 GM/NS 3 GM/100 ML IVPB IV SCH ×3 (04:59→18:04)
[2018-04-07] MEDS: SOLU-MEDROL IV SCH (04:59)
[2018-04-07] MEDS: HUMULIN R SUBQ SCH ×4 (06:22→20:47)
[2018-04-07] MEDS: PRILOSEC PO SCH (06:22)
[2018-04-07 06:37] LABS: BASO# 0.01 X1000 (0.0-0.2); BASO% 0.1 % (0.0-0.8); EOS# 0.01 X1000 (0.0-0.7); EOS% 0.1 % (0.0-10.0); HEMATOCRIT 40.4 % (37.0-47.0); IMM GRAN# 0.07 X1000 (0.0-0.04); IMM GRAN% 0.5 % (0.0-0.5); LYMPH# 2.15 X1000 (1.2-3.4); LYMPH% 15.7 % (20.5-51.1); MCH 26.9 PG (27-31); MCHC 32.2 g/dL (33-37); MCV 83.5 FL (81-99); MONO# 0.68 X1000 (0.11-0.59); MPV 11.1 FL (7.4-10.4); NEUT# 10.77 X1000 (1.4-6.5); NEUT% 78.6 % (42.2-75.2); PLT 263 X1000 (130-400); RBC 4.84 XMIL (4.2-5.4); RDW 16.1 % (11.5-14.5); WBC 13.69 X1000 (4.8-10.8)
[2018-04-07 06:57] LABS: AGAP 13; BUN 19 mg/dL (8-22); CALCIUM 8.2 mg/dL (8.8-10.2); CHLORIDE 97 mmol/L (98-107); COSMO 283; CREATININE 0.6 mg/dL (0.5-0.9); ESTIMATED GFR > 60; GLUCOSE 299 mg/dL (70-104); POTASSIUM 4.1 mmol/L (3.5-5.1); SODIUM 135 mmol/L (136-145); TCO2 25 mmol/L (25-35)
[2018-04-07] MEDS: ADVAIR 500/50 DISKUS INH SCH ×2 (07:25→19:35)
[2018-04-07 08:29] LABS: INR 0.94; PROTIME 13.3 Seconds (11.0-16.0)
[2018-04-07 08:30] LABS: PTT 22.4 Seconds (22.3-41.8)
--- NOTE | 2018-04-07 12:09 | PROGRESS NOTE ---
DATE: 04/07/2018 SUBJECTIVE: The patient reports feeling hungry. She is supposed to have a transesophageal echo in an hour. Denies fever, chills, or chest pain. OBJECTIVE: Vital Signs: Temperature 08.0, heart rate 60, respiratory rate 16, blood pressure 145/70. O2 sat 96% on room air. General: This is a 53-year-old -[place] female lying in bed in no acute distress. HEENT: Head is normocephalic and atraumatic. Neck: No JVD noted. No carotid bruits. No lymphadenopathy. No thyromegaly. Cardiovascular: S1, S2 heard. No murmurs, gallops, or rubs. Regular rate and rhythm. Respiratory: Decreased air entry with prolonged respiratory phase. There is wheezing noted in both pulmonary bases; same when compared with yesterday. Patient is not using any accessory muscles or having work of breathing. Abdomen is soft, nontender to palpation. Bowel sounds present. No organomegaly. Extremities: No clubbing, cyanosis, or edema. Peripheral pulses present in both legs. Neurologic: Patient is alert and oriented x3. Moves 4 extremities. LABORATORY DATA: White cell count 13.69 with hemoglobin 13.0, hematocrit 40.4, platelets 63. Blood sugars 299 and yesterday it was 373 and 336. ASSESSMENT AND PLAN: 1. Peptostreptococcus prevotii bacteremia. Patient is on Unasyn as per Infectious Disease. Because there was a finding suspicious for endocarditis in the transthoracic echo, we have consulted Cardiology, and they are planning to do a transesophageal echo today. We will see what it shows. In the meantime, we will continue with antibiotic treatment outlined by Dr. Naranjo. 2. Chronic obstructive pulmonary disease. The patient is on pressor. Patient is getting better. Patient is receiving IV steroids that are being weaned off by Dr. Nolasco. We will follow recommendations. 3. Hemoptysis secondary to chronic obstructive pulmonary disease. Patient is supposed to have outpatient bronchoscopy. 4. Uncontrolled hypertension. We will continue with the same medication. 5. History of previous contact tuberculosis. The patient will be referred to [facility] as per Dr. Naranjo' recommendation. PLAN: At this point, we will continue to monitor this patient closely. We will see what the DUSTIN shows, and we will go from there. cc: Harshil Amador MD [facility]
[2018-04-07] MEDS ORDERED: DIPRIVAN 1% ONE ×2 (12:23→12:24)
[2018-04-07] MEDS ORDERED: XYLOCAINE-MPF 2% ONE (12:25)
[2018-04-07] MEDS: COZAAR PO SCH (13:29)
[2018-04-07] MEDS: BUSPAR PO SCH (13:30)
[2018-04-07] MEDS: CATAPRES PO SCH ×2 (13:30→20:44)
[2018-04-07] MEDS: HYDROCHLOROTHIAZIDE PO SCH (13:30)
[2018-04-07] MEDS: NORVASC PO SCH (13:30)
[2018-04-07] MEDS: BASAGLAR SUBQ SCH ×2 (13:31→20:47)
--- NOTE | 2018-04-07 22:42 | INFECTIOUS DISEASE PROGRESS NO ---
DATE: 04/07/2018 PRESENT ILLNESS: Ms. Perez has Peptostreptococcal bacteremia. There is also a positive QuantiFERON TB test. The patient has had a treatment for TB in the past, so this may or may not be indicative of active disease. MEDICATIONS: She is on day 2 of Unasyn 3 g IV every 6 hours. She is also receiving Solu-Medrol. PHYSICAL EXAMINATION: Vital Signs: Temperature is 98.6, pulse rate 76, respiratory rate 16, blood pressure 153/71, O2 sats is 95% on room air. General: This is a middle- aged, morbidly obese female. She is lying in the bed on her right lateral side in no acute distress. HEENT: Atraumatic, normocephalic. Oral mucous membranes are pink and moist. Conjunctivae are pink. Neck: Supple. Trachea is midline. Cardiovascular: Heart rate is regular. Radial and pedal pulses are +2 bilaterally. Respiratory: Lung sounds are clear to auscultation. Diminished in the bases. Abdomen: Soft, obese and nontender. Bowel sounds are active. Neurologic: She is awake, alert, oriented and able to move around independently without any notable weakness. LABORATORY AND X-RAY: Today her white count is 13.69, hemoglobin 13, platelet count 263,000. Creatinine is 0.6. Estimated GFR is greater than 60. Previous blood cultures both grew Peptostreptococcus prevotii. She does have a set of blood cultures drawn yesterday which are pending. No imaging reports today. ASSESSMENT AND PLAN: Ms. Perez has a Peptostreptococcal bacteremia for which she is receiving Unasyn. We are awaiting negative blood cultures which will hopefully be seen tomorrow. For now, we will continue Unasyn as ordered. The plan is for her to have a DUSTIN. Initially, she was to have it today, but she tells me they plan to do it tomorrow morning. She has an elevated WBC count today, however, she is receiving IV solumedrol. As previously mentioned by Dr. Naranjo, we will refer her to the Health Department upon discharge, at which time they can follow up on her positive QuantiFERON results. COMORBIDITIES: For Ms. 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 Dictated by FER Mccoy for Horacio Naranjo MD This chart was documented by, FER Mccoy and accurately reflects the services performed, treatment plan and medical decisions as attested by the providers signature Horacio Naranjo MD. cc: Horacio Naranjo MD [facility]
[2018-04-08] MEDS: UNASYN 3 GM/NS 3 GM/100 ML IVPB IV SCH ×2 (00:59→08:21)
[2018-04-08] MEDS: DUONEB (A & A) INH SCH ×6 (05:31→23:48)
[2018-04-08] MEDS: SOLU-MEDROL IV SCH (06:12)
[2018-04-08] MEDS: PRILOSEC PO SCH (06:12)
[2018-04-08] MEDS: HUMULIN R SUBQ SCH ×4 (06:12→21:35)
[2018-04-08 06:59] LABS: BASO# 0.01 X1000 (0.0-0.2); BASO% 0.1 % (0.0-0.8); EOS# 0.06 X1000 (0.0-0.7); EOS% 0.5 % (0.0-10.0); IMM GRAN# 0.08 X1000 (0.0-0.04); IMM GRAN% 0.6 % (0.0-0.5); LYMPH# 4.78 X1000 (1.2-3.4); LYMPH% 35.9 % (20.5-51.1); MCH 27.2 PG (27-31); MCHC 32.5 g/dL (33-37); MCV 83.7 FL (81-99); MONO# 0.76 X1000 (0.11-0.59); MONO% 5.7 % (1.7-9.3); MPV 11.1 FL (7.4-10.4); NEUT# 7.63 X1000 (1.4-6.5); NEUT% 57.2 % (42.2-75.2); PLT 286 X1000 (130-400); RBC 4.78 XMIL (4.2-5.4); RDW 16.7 % (11.5-14.5); WBC 13.32 X1000 (4.8-10.8)
[2018-04-08 07:27] LABS: AGAP 12; BUN 27 mg/dL (8-22); CHLORIDE 98 mmol/L (98-107); COSMO 285; CREATININE 0.7 mg/dL (0.5-0.9); ESTIMATED GFR > 60; GLUCOSE 282 mg/dL (70-104); POTASSIUM 3.9 mmol/L (3.5-5.1); SODIUM 135 mmol/L (136-145); TCO2 25 mmol/L (25-35)
[2018-04-08] MEDS: ADVAIR 500/50 DISKUS INH SCH ×2 (08:15→19:13)
[2018-04-08] MEDS ORDERED: DIPRIVAN 1% ONE (09:24)
[2018-04-08] MEDS ORDERED: ANESTHESIA PB SET 88 IN 5742 ONE (09:45)
[2018-04-08] MEDS ORDERED: CLAVE TWINSITE 32 IN 11959 ONE (09:45)
[2018-04-08] MEDS ORDERED: XYLOCAINE 4% TOPICAL SOLUTION ONE (09:45)
[2018-04-08] MEDS ORDERED: XYLOCAINE 2% VISCOUS ONE (09:45)
[2018-04-08] MEDS ORDERED: NS 500 ML ONE (09:46)
[2018-04-08] MEDS: AMPICILLIN 2 GM/NS 2 GM/100 ML IVPB IV SCH ×2 (12:00→17:47)
[2018-04-08] MEDS: BASAGLAR SUBQ SCH ×2 (12:41→21:35)
[2018-04-08] MEDS: NORVASC PO SCH (14:32)
[2018-04-08] MEDS: BUSPAR PO SCH (14:33)
[2018-04-08] MEDS: CATAPRES PO SCH ×3 (14:33→21:35)
[2018-04-08] MEDS: HYDROCHLOROTHIAZIDE PO SCH (14:34)
[2018-04-08] MEDS: COZAAR PO SCH (14:34)
--- NOTE | 2018-04-08 17:16 | PROGRESS NOTE ---
DATE: 04/08/2018 SUBJECTIVE: Patient reports feeling fine. She had a transesophageal echo this morning, but we do not know about the results of those. OBJECTIVE: Vital Signs: Temperature 98.0 degrees, heart rate 64, respiratory rate 16, blood pressure 101/64, O2 saturation 99% on room air. General Examination: This is a chronically ill- looking, 53-year-old female, lying in bed, in no acute distress. HEENT: Head is normocephalic, atraumatic. Neck: No JVD noted. No carotid bruits. No lymphadenopathy. No thyromegaly. Cardiovascular: S1, S2 heard. No murmurs, gallops, or rubs. Regular rate and rhythm. Respiratory: Decreased air entry globally. There is also prolonged respiratory phase and minimal wheezing noted in both lung bases. The patient is not using any accessory muscles or having work of breathing. Abdomen: Soft, nontender to palpation. Bowel sounds present. No organomegaly. Extremities: No clubbing, cyanosis, or edema. Peripheral pulses present in both legs. Neurological: Patient is alert and oriented x3. Moves 4 extremities. DIAGNOSTIC STUDIES: Laboratory data reviewed. ASSESSMENT: 1. Peptostreptococcal bacteremia. The patient is receiving Unasyn as per Dr. Naranjo from Infectious Disease. Plan for today is to do a transesophageal echocardiogram to confirm findings in the aortic valve. If that exam is negative, then probably we will proceed with 2 weeks of antibiotics, but if that exam is positive, the patient with possible endocarditis will definitely need to be on a different medication and for a longer period time. In any case, we are awaiting results of that DUSTIN and we will go from there. Dr. Naranjo has been informed that this patient may be discharged tomorrow as soon as we know the results of the transesophageal echo. 2. Chronic obstructive pulmonary disease (COPD). Patient is on home breathing treatments. The patient is also on IV steroids. Dr. Nolasco from Pulmonology following this patient. We will follow recommendations. 3. Hemoptysis secondary to chronic obstructive pulmonary disease (COPD). Patient is supposed to have an outpatient bronchoscopy with Dr. Nolasco. 4. Uncontrolled hypertension. The blood pressure is better controlled. We will continue with the same management. 5. History of previous contact tuberculosis. Patient will be referred to the [facility] by Dr. Naranjo. PLAN: At this point, we are awaiting results of DUSTIN. If that is negative, then patient can be discharged with IV antibiotics per Dr. Naranjo' recommendation. cc: Harshil Amador MD
[2018-04-08] MEDS: MYLICON PO PRN (17:46)
[2018-04-08] MEDS: ATIVAN IV PRN (19:56)
--- NOTE | 2018-04-08 20:56 | INFECTIOUS DISEASE PROGRESS NO ---
DATE: 04/08/2018 PRESENT ILLNESS: The patient has peptostreptococcal bacteremia. She also has a positive QuantiFERON TB test. MEDICATIONS: The patient was switched yesterday from Unasyn to ampicillin 2 g IV every 6 hours. The patient also is getting steroids. PHYSICAL EXAMINATION: Vital Signs: Temperature is 98, pulse 82, respirations 17, blood pressure 129/78. General: This is a morbidly obese, middle-aged female. She is in no acute distress. Head, Eyes, Ears, Nose and Throat: She can hear my spoken words and see near objects. She does not have any white patches on her tongue. Neck: No meningismus. Lungs: Clear to auscultation. Cardiovascular: Heart rate is regular. Abdomen: Soft and nontender. Neurologic: Patient is alert. She can move her extremities. There is no tremor. LAB AND X-RAY: The patient had a transesophageal echocardiogram today, but the results are pending. The patient's blood cultures are negative at 48 hours. She had the blood cultures drawn on April 06. CBC shows a white count of 13,320, hemoglobin 13 and platelet count 286,000. Creatinine is 0.7. GFR is greater than 60. The patient's immunoglobulin levels, including IgG and IgA, are normal. ASSESSMENT AND PLAN: The patient has peptostreptococcal bacteremia. She is on ampicillin. This is day #2 of treatment with antibiotics, with day #1 being the first day that the blood cultures are sterile. The patient had a transesophageal echocardiogram today, the results are pending. Right now she has a bacteremia, but if the echocardiogram shows vegetations then the patient will be diagnosed as having endocarditis. I am going to go ahead and order that a PICC be placed since the patient's repeat blood cultures are sterile, and for now we will continue with IV ampicillin for at least 14 days, and for 6 weeks if she has endocarditis. COMORBIDITIES: Patient is morbidly obese. She also has diabetes mellitus, gastroesophageal reflux disease. As regarding her positive QuantiFERON test, this could represent prior tuberculosis, but not active now and, of course, it could indicate that there is active disease. I suspect that the patient does not have any active disease and that the QuantiFERON test can be positive even if the patient has inactive or no disease at all from tuberculosis at this time. The plan is as regarding her positive QuantiFERON test is to refer the patient to the Health Department for them to decide on what if any treatment the patient needs. cc: Horacio Naranjo MD
--- NOTE | 2018-04-09 00:33 | PULMONOLOGY PROGRESS NOTE ---
DATE: 04/08/2018 SUBJECTIVE: The patient reports she feels a little better. She has a slight cough which is nonproductive. OBJECTIVE: The patient has been afebrile for the last 24 hours. BP 129/78, heart rate 89, respiratory rate 22, oxygen saturation 100%. HEENT: Pupils are equal and reactive. Oropharynx is clear. Neck: Supple. Chest: Reveals good air entry bilaterally with minimal wheeze. Cardiac: S1, S2. Abdomen: Soft. Extremities: Without edema. LABORATORIES: The patient continues to have poorly controlled blood sugars ranging from 249 to 469. Sodium 135, potassium 3.9, chloride 98, bicarbonate 25, BUN 27, creatinine 0.7. White blood count 13.32, hemoglobin 13.0, platelet count 286,000. A DUSTIN was performed. The handwritten progress note by Dr. Lubin is reviewed, and it appears to say negative for endocarditis with no complications. Culture data reveals no new information. IMPRESSION: A 53-year-old with hemoptysis, peptostreptococcal bacteremia, history of tuberculosis but no evidence of active tuberculosis on CT scan, positive QuantiFERON gold tuberculosis test, chronic obstructive pulmonary disease exacerbation, stable pulmonary nodules. Transesophageal echocardiogram today by note suggests no endocarditis. The patient continues to have poorly controlled diabetes, which will make it difficult to clear her bronchitis. RECOMMENDATION: 1. Discontinue steroids in an attempt to improve glycemic control. 2. Smoking cessation has been recommended at each visit. 3. Anticipate referral to the health department for a positive QuantiFERON gold test as per Dr. Naranjo' recommendations. 4. Recommend followup in my clinic in 4 to 5 weeks. Bronchoscopy can be scheduled at that time. cc: Jason Nolasco MD
[2018-04-09] MEDS: AMPICILLIN 2 GM/NS 2 GM/100 ML IVPB IV SCH ×3 (01:07→15:20)
[2018-04-09] MEDS: DUONEB (A & A) INH SCH ×4 (03:23→15:21)
[2018-04-09] MEDS: HUMULIN R SUBQ SCH ×3 (06:05→16:55)
[2018-04-09] MEDS: PRILOSEC PO SCH (06:06)
--- NOTE | 2018-04-09 07:24 | EKG Report ---
Test Performed on : 04/08/2018 5:53:24 PM Test Reason : Chest pain Blood Pressure : / mmHG Vent. Rate : 076 BPM Atrial Rate : 076 BPM P-R Int : 142 ms QRS Dur : 082 ms QT Int : 406 ms P-R-T Axes : 056 011 034 degrees QTc Int : 456 ms Normal sinus rhythm. Normal ECG When compared with ECG of 17-FEB-2018 20:07, (Unconfirmed) No significant change was found Confirmed by Zahra YOUNGER, Bernard Rocha ([id number]) on 04/09/2018 8:48:20 AM
[2018-04-09] MEDS ORDERED: INSULIN PEN NEEDLES ONE (07:42)
[2018-04-09] MEDS: ADVAIR 500/50 DISKUS INH SCH (07:56)
[2018-04-09] MEDS: CATAPRES PO SCH (09:51)
[2018-04-09] MEDS: COZAAR PO SCH (09:51)
[2018-04-09] MEDS: BASAGLAR SUBQ SCH (09:51)
[2018-04-09] MEDS: NORVASC PO SCH (09:52)
[2018-04-09] MEDS: BUSPAR PO SCH (09:52)
[2018-04-09] MEDS: HYDROCHLOROTHIAZIDE PO SCH (09:52)
[2018-04-09 10:16] LABS: INR 0.82; PROTIME 11.9 Seconds (11.0-16.0)
[2018-04-09] MEDS ORDERED: NS 250 ML ONE (11:44)
[2018-04-09] MEDS: ATIVAN IV PRN (15:52)
[2018-04-09 15:54] VITALS: BP 110/63
--- NOTE | 2018-04-09 18:48 | DISCHARGE SUMMARY ---
ADMISSION DATE: 04/01/2018 DISCHARGE DATE: 04/09/2018 DISCHARGE DIAGNOSES: 1. Sepsis secondary to Peptostreptococcus prevotii. 2. Hemoptysis. 3. Uncontrolled diabetes mellitus type 2. 4. Chronic obstructive pulmonary disease exacerbation. 5. Uncontrolled hypertension. 6. History of previous contact with tuberculosis and hemoptysis. CONSULTATIONS: 1. Jason Nolasco MD from Pulmonary. 2. oRgelio Jarrett MD from Cardiology. 3. Horacio Naranjo MD from Infectious Disease. PROCEDURES: 1. Chest CT done on admission showed multiple pulmonary nodules stable since mid February 2017 with pulmonary emphysema and central bronchial wall thickening. 2. Echocardiogram and Doppler showed normal left ventricular systolic function with mild degree of concentric LVH with mild degree of pulmonary hypertension. No definite diastolic dysfunction. Unusual thickening of the aortic valve cusp. Consider transesophageal echo if in the blood cultures showed evidence of microorganism that is likely to cause endocarditis. 3. Maxillofacial CT showed no evidence of paranasal sinusitis. 4. Esophageal echo verbally reported did not show any signs of endocarditis. HOSPITAL COURSE: This is a 53-year-old female with history of diabetes mellitus type 2 and bronchial asthma who presented to the emergency department complaining of hemoptysis with COPD exacerbation. She was seen in the ER 24 hours prior and given steroids and also antibiotics but she was not improving. The patient for hemoptysis was transferred from [facility] to [facility]. We have consulted Pulmonary about this hemoptysis. 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 The blood culture showed bacteria as above. The initial plan was to IV antibiotics for a couple weeks but because of the possibility of endocarditis considering that this is Streptococcus, we ordered a DUSTIN with results as above. At this time Dr. Naranjo has arranged ampicillin every 6 hours. Because we do not have any answer from insurance company what we are going to do is to change antibiotics to ceftriaxone which is giving once per day so the patient can get that medication in [facility], then will be seen by Dr. Horacio Naranjo in the office in a couple weeks. DISCHARGE PHYSICAL EXAMINATION: Vital Signs: Temperature 97.7 degrees, heart rate 76, respiratory rate 20, blood pressure 110/63, O2 saturation 100% on room air. General examination: This is a 53-year-old. female lying in bed, in no acute distress. HEENT: Head is normocephalic, atraumatic. Neck: No JVD noted. No carotid bruits. No lymphadenopathy. No thyromegaly. Cardiovascular: S1-S2 heard. No murmurs, gallops, or rubs. Regular rate and rhythm. Respiratory: Clear bilaterally to auscultation. No work of breathing or using accessory muscles. Abdomen: Soft, nontender to palpation. Bowel sounds present. No organomegaly. Extremities: No clubbing, cyanosis, or edema. Peripheral pulses present in both legs. Neurological: Patient alert oriented x3. Moves 4 extremities. DISCHARGE DISPOSITION: 1. The patient is going home with IV antibiotics. 2. Follow up with Dr. Horacio Naranjo in a couple weeks. 3. Follow up with Dr. Jason Nolasco in 2 to 4 weeks for bronchoscopy for study of hemoptysis. 4. The patient needs to follow up with the health department regarding positive PPD on QuantiFERON as per Dr. Naranjo. LIST OF MEDICATIONS: 1. Losartan 50 mg 1 tablet p.o. daily. 2. Omeprazole 40 mg 1 tablet p.o. daily. 3. Bilateral are 25 mg twice daily. 4. Hydrochlorothiazide 25 mg 1 tablet p.o. daily. 5. BuSpar 5 mg 1 tablet p.o. daily. 6. Ferrous sulfate 325 mg 1 tablet p.o. daily. 7. Fluticasone 1 inhalation twice daily. 8. Amlodipine 10 mg 1 tablet p.o. daily. 9. Metformin 1000 mg 1 tablet p.o. b.i.d. 10. Glimepiride/Amaryl 4 mg 1 tablet p.o. daily. 11. Clonidine 0.1 mg 1 tablet p.o. b.i.d. 12. Ventolin two puffs inhalation every 6 hours as needed. 13. Robaxin 750 mg 1 tablet p.o. b.i.d. as needed. DISCHARGE TIME: 33 minutes. cc: MD CYNTHIA Kruse
--- NOTE | 2018-04-10 02:40 | INFECTIOUS DISEASE PROGRESS NO ---
DATE: 04/09/2018 PRESENT ILLNESS: The patient has a suspected streptococcal bacteremia, the exact origin of which is uncertain. It may well have been a pulmonary focus. The patient also has a positive QuantiFERON TB test. MEDICATIONS: The patient is on ampicillin 2 g IV every 6 hours. On the 06 of April, the patient's blood cultures were sterile. Therefore, that will be day 1 of the treatment, and the patient now, this will be day 3 of treatment, with day 1 being the first day that the repeat blood cultures are sterile. Physical EXAMINATION: Vital Signs: Temperature is 97.7 degrees, pulse 76, respirations 20, blood pressure 110/63. General: This is an obese, middle-aged female. She is in no acute distress. Head, Eyes, Ears, Nose, and Throat: She can hear my spoken words and see near objects. She does not have any white patches on her tongue. Neck: No meningismus. Lungs: Clear to auscultation. Cardiovascular: Regular heart rate. Abdomen: Soft and nontender. Extremities: The patient had a PICC placed today. The site is not bleeding or swelling. Neurologic: The patient is awake. She can ambulate without difficulty. She does not have any problem talking. She does not have a tremor. LAB AND X-RAY: Dr. Nolasco noted that the transesophageal echocardiogram showed no vegetation on any valve. The patient's blood cultures drawn on April 06 are negative. ASSESSMENT AND PLAN: The patient has streptococcal bacteremia. I plan to treat her for 2 weeks, with day 1 being the first day that the patient's blood cultures are sterile. I am going to give the patient an appointment to be seen in 2 weeks in my office. My plan is to continue ampicillin IV, for a total of 14 days. The patient will be coming back to my office at that time, and the PICC will be removed. The patient will have a followup with Dr. Nolasco in his office in 4 to 5 weeks. As regarding the patient's QuantiFERON test being positive, I plan to refer her to the [facility], and let them decide what, if any, treatment is necessary. COMORBIDITIES: She is a diabetic. She has gastroesophageal reflux disease. She is morbidly obese. cc: Horacio Naranjo MD
--- NOTE | 2018-04-12 08:28 | Transesophageal Echocardiogram ---
ORDER DATE: 04/08/2018 PROCEDURE: Transesophageal echocardiogram. INDICATIONS: Suspected endocarditis of the aortic valve. DESCRIPTION: The patient was brought to the cardiac director geophysical laboratory. The patient received intravenous anesthesia under the services of DR. Willoughby. The throat was anesthetized with Hurricaine and viscous lidocaine. The esophagus was intubated without difficulty. Multiple views of the cardiac structure were obtained. SUMMARY OF MAIN FINDINGS: The left atrium and appendage are free of any abnormality. The interatrial septum is intact. There is no evidence of any shunt across the septum. Left atrium is relatively small. The atrial appendage had normal velocities. The right atrium is unremarkable except that the eustachian valve is really very prominent. It is free of abnormalities. Tricuspid valve is normal. Color flow mapping unremarkable. The pulmonic valve looks normal. Color flow mapping unremarkable. Right ventricular outflow tract and right ventricle appear to be normal. Aortic valve has 3 cusps. They open normally. There is no vegetation. Color flow mapping unremarkable. Aortic root is not dilated. Mitral valve looks normal. Color flow mapping unremarkable. Left ventricle shows normal function. There is no pericardial effusion. The descending thoracic aorta shows normal wall thickness. The pulmonary venous flow, right and left pulmonary veins are normal. SUMMARY: In summary, this study shows essentially normal transesophageal echocardiographic study. There is no evidence of any endocardial vegetation. The patient tolerated the procedure well without complications. cc: MD Rogelio Michaels MD
== END 2018-04-09 17:54 | disposition home or self-care (01) | DRG 872 ==
LOC: P.ED 20:40 → SUATTDRO 04-01 06:39 → P.MEDSURG 04-01 06:39 → 3N 04-02 22:51
PROVIDERS: ATTEND Internal Medicine
CPT/HCPCS: 36569; 70486; 71010; 71045; 71260; 80048; 80053; 80202; 82784; 82948; 83036; 83516; 84145; 85025; 85027; 85610; 85730; 86038; 86039; 86480; 86606; 87040; 87070; 87076; 87205; 93005; 93010; 93306; 93312; 94640; 94761; 94799; 96374; 99285; A9270; J0290; J0295; J0696; J1815; J1956; J2060; J2920; J2930; J3370; J7040; J7050; XXXXX